=== PATIENT | female | born 1955 | race Caucasian/White ===

== ENCOUNTER → 2016-08-09 | Outpatient (CLI) | payer OTHER ==
[~2016-08-09] MED LIST: AMOX500C3 PO; ASCO500T16 PO; ASPI-232 PO; ATOR-14 PO; B-COTAB18 PO; BRIM0.1S OPR; CEPH500C2 PO; CHOL1TAB53 PO; CLC100X PO; CLON1TAB3 PO; FENT25DI10 TD; FENT75DI2 EXT; FLM4 PO; FOLI1TAB7 PO; INSDGI SC; LACT1POW PO; LATA0.5S OPB; LISI-729 PO; METH1TAB5 PO; MTHH1 PO; MULT-506 PO; NVLGI SC; NYSCR30 EXT; OXYC-57 PO; PARO1TAB27 PO; VITA400C15 PO; VITAMIN D3 PO; [UNRECOGNIZED DRUG - CODE] IM; [UNRECOGNIZED DRUG - CODE] PO
[2016-08-09 09:14] LABS: URINE APPEARANCE CLOUDY (CLEAR); URINE BILIRUBIN NEG (NEG); URINE COLOR YELLOW; URINE EPITHELIAL CELL AUTO >30 /lpf (0-5); URINE NITRITE POS (NEG); URINE SPECIFIC GRAVITY 1.015 (1.000-1.030); UROBILINOGEN NEG (NEG)
[2016-08-09 09:21] LABS: MANUAL MICROSCOPIC REQUIRED? NO; REVIEW REQ? YES
[2016-08-09 10:04] LABS: BASO % 0.4 %; BASO ABS # 0.03 K/uL (0-0.2); COMPLETE YES; EOS % 2.9 %; IG% 0.1 %; LYMPH % 30.4 %; MEAN CELL VOLUME 91.1 fL (80-100); MEAN CORPUSCULAR HEMOGLOBIN 29.6 pg (25-34); MEAN CORPUSCULAR HGB CONC 32.5 g/dl (32-36); MONO % 9.9 %; NEUT % 56.3 %; PLATELET COUNT 232 K/uL (130-400); RED BLOOD COUNT 3.95 M/uL (4.2-5.4)
[2016-08-09 10:17] LABS: BLOOD UREA NITROGEN 43 mg/dl (7-18); BUN/CREATININE RATIO 39.4 (10-20); CALCIUM 9.1 mg/dl (8.5-10.1); CARBON DIOXIDE 28 mmol/L (21-32); CHLORIDE 106 mmol/L (98-107); CHOLESTEROL 96 mg/dl (0-200); GLUCOSE 164 mg/dl (70-99); POTASSIUM 4.5 mmol/L (3.5-5.1); SODIUM 142 mmol/L (136-145); TRIGLYCERIDES 169 mg/dl (0-150); VERY LOW DENSITY LIPOPROT CALC 34 mg/dl
[2016-08-09 10:20] LABS: ESTIMATED AVERAGE GLUCOSE 169 mg/dl; HA1C FLAG Normal (Normal); HDL CHOLESTEROL 32 mg/dl; LDL CHOLESTEROL CALCULATED 30 mg/dl
== END ==
LOC: C.LABUPBEA 08:49
PROVIDERS: ATTEND Family Medicine
DX: R30.0 Dysuria (principal); E11.9 Type 2 diabetes mellitus without complications; I10 Essential (primary) hypertension; I73.89 Other specified peripheral vascular diseases

== ENCOUNTER → 2016-08-19 | Outpatient (CLI) | payer OTHER ==
[2016-08-19 08:51] LABS: ALT/SGPT 23 U/L (12-78); BLOOD UREA NITROGEN 20 mg/dl (7-18); BUN/CREATININE RATIO 25.3 (10-20); CALCIUM 8.8 mg/dl (8.5-10.1); CARBON DIOXIDE 26 mmol/L (21-32); CHLORIDE 109 mmol/L (98-107); CHOLESTEROL 80 mg/dl (0-200); CREATININE 0.77 mg/dl (0.60-1.20); GLUCOSE 120 mg/dl (70-99); POTASSIUM 4.1 mmol/L (3.5-5.1); SODIUM 143 mmol/L (136-145); TRIGLYCERIDES 75 mg/dl (0-150); VERY LOW DENSITY LIPOPROT CALC 15 mg/dl
[2016-08-19 08:54] LABS: ALB/GLOB RATIO 0.9 (0.9-2); ALKALINE PHOSPHATASE 92 U/L (45-117); AST/SGOT 15 U/L (15-37); CHOLESTEROL/HDL RATIO 2.2; HDL CHOLESTEROL 36 mg/dl; LDL CHOLESTEROL CALCULATED 29 mg/dl
[2016-08-19 09:51] LABS: HEMATOCRIT 35.4 % (37-47); MEAN CELL VOLUME 89.6 fL (80-100); MEAN CORPUSCULAR HEMOGLOBIN 29.9 pg (25-34); MEAN CORPUSCULAR HGB CONC 33.3 g/dl (32-36); MEAN PLATELET VOLUME 11.4 fL (7.4-10.4); PLATELET COUNT 208 K/uL (130-400); RED BLOOD COUNT 3.95 M/uL (4.2-5.4); WHITE BLOOD COUNT 6.53 K/uL (4.8-10.8)
[2016-08-19 09:54] LABS: BASO % 0.6 %; BASO ABS # 0.04 K/uL (0-0.2); COMPLETE YES; EOS % 2.3 %; IG% 0.3 %; LYMPH % 32.5 %; LYMPH ABS # 2.12 K/uL (1.2-3.4); MONO % 7.2 %; NEUT % 57.1 %; PLT ESTIMATE NORMAL
[2016-08-19 09:55] LABS: ESTIMATED AVERAGE GLUCOSE 171 mg/dl; HA1C FLAG Normal (Normal)
--- NOTE | 2016-09-28 12:10 | CODING QUERY MEDICAL NECESSITY ---
SUPPORTING DIAGNOSIS NEEDED A supporting diagnosis is required for the test/procedure performed on this patient in order for us to be reimbursed by the patient's insurance. Please provide a supporting diagnosis for the following test/procedure listed below next to the test name along with your signature. *If there is no additional diagnosis for this patient that would support the following test/procedure please document that below next to the test/procedure. Test(s)/Procedure(s) that require a supporting diagnosis: DOS 08/19 * Vitamin B12 DIAGNOSIS: Provider Signature: Date: Thank you Sirisha Nolan Health Information Management Once completed, please kindly fax back to [phone] For questions please call [phone]
== END ==
LOC: C.LABUPHEI 08:16
PROVIDERS: ATTEND Family Medicine
DX: E11.9 Type 2 diabetes mellitus without complications (principal)

== ENCOUNTER → 2016-09-14 | Outpatient (CLI) | payer OTHER ==
[~2016-09-14] MED LIST changes: -CEPH500C2 PO
[2016-09-14 09:31] LABS: URINE APPEARANCE CLEAR (CLEAR); URINE BILIRUBIN NEG (NEG); URINE COLOR YELLOW; URINE EPITHELIAL CELL AUTO >30 /lpf (0-5); URINE NITRITE POS (NEG); URINE SPECIFIC GRAVITY 1.019 (1.000-1.030); UROBILINOGEN NEG (NEG); ZZUR CULT IF INDIC CLEAN CATCH YES
[2016-09-14 09:37] LABS: MANUAL MICROSCOPIC REQUIRED? NO; REVIEW REQ? NO
== END ==
LOC: C.LABUPBEA 09:00
PROVIDERS: ATTEND Family Medicine
DX: N39.0 Urinary tract infection, site not specified (principal)

== ENCOUNTER → 2016-09-19 | Outpatient (CLI) | payer OTHER ==
[2016-09-19 12:10] LABS: URINE APPEARANCE CLEAR (CLEAR); URINE BILIRUBIN NEG (NEG); URINE COLOR YELLOW; URINE NITRITE NEG (NEG); URINE PH 5.5 (4.5-7.5); URINE SPECIFIC GRAVITY 1.015 (1.000-1.030); UROBILINOGEN NEG (NEG)
[2016-09-19 12:19] LABS: MANUAL MICROSCOPIC REQUIRED? NO; REVIEW REQ? NO
== END ==
LOC: C.LABUPBEA 09:03
PROVIDERS: ATTEND Family Medicine
DX: N39.0 Urinary tract infection, site not specified (principal)

== ENCOUNTER → 2016-11-22 | Outpatient (CLI) | payer OTHER ==
[~2016-11-22] MED LIST changes: +METH-1305 PO; -METH1TAB5 PO
[2016-11-22 10:29] LABS: URINE APPEARANCE TURBID (CLEAR); URINE BILIRUBIN NEG (NEG); URINE COLOR YELLOW; URINE EPITHELIAL CELL AUTO >30 /lpf (0-5); URINE NITRITE NEG (NEG); URINE PH 6.5 (4.5-7.5); URINE SPECIFIC GRAVITY 1.023 (1.000-1.030); UROBILINOGEN NEG (NEG)
[2016-11-22 10:32] LABS: MANUAL MICROSCOPIC REQUIRED? NO; REVIEW REQ? YES
== END ==
LOC: C.LABUPBEA 10:00
PROVIDERS: ATTEND Family Medicine
DX: R82.5 Elevated urine levels of drugs, medicaments and biological substances (principal)

== ENCOUNTER → 2017-01-19 | Outpatient (CLI) | payer OTHER ==
[~2017-01-19] MED LIST changes: -CHOL1TAB53 PO; -FENT25DI10 TD; -MTHH1 PO; -[UNRECOGNIZED DRUG - CODE] PO
[2017-01-19 10:55] LABS: ALT/SGPT 28 U/L (12-78); AST/SGOT 18 U/L (15-37); BLOOD UREA NITROGEN 23 mg/dl (7-18); BUN/CREATININE RATIO 33.4 (10-20); CARBON DIOXIDE 29 mmol/L (21-32); CHLORIDE 110 mmol/L (98-107); CREATININE 0.69 mg/dl (0.60-1.20); GLUCOSE 62 mg/dl (70-99); SODIUM 146 mmol/L (136-145)
[2017-01-19 10:57] LABS: ALB/GLOB RATIO 0.9 (0.9-2); ALKALINE PHOSPHATASE 96 U/L (45-117); CHOLESTEROL 127 mg/dl (0-200); HDL CHOLESTEROL 32 mg/dl; LDL CHOLESTEROL CALCULATED 63 mg/dl; TRIGLYCERIDES 162 mg/dl (0-150); VERY LOW DENSITY LIPOPROT CALC 32 mg/dl
[2017-01-19 11:32] LABS: ESTIMATED AVERAGE GLUCOSE 171 mg/dl; HA1C FLAG Normal (Normal)
== END | disposition home or self-care (01) ==
LOC: C.LABUPBEA 09:19
PROVIDERS: ATTEND Family Medicine
DX: E11.9 Type 2 diabetes mellitus without complications (principal); I25.2 Old myocardial infarction

== ENCOUNTER → 2017-01-25 | Day surgery (SDC) | payer OTHER ==
[2017-01-05 07:42] VITALS: Ht 151.4 cm; Wt 95.9 kg
[~2017-01-25] VITALS: Ht 151.4 cm; Wt 95.9 kg
[~2017-01-25] MED LIST changes: +SODIUM CHLORIDE 0.9% 500ML 500 ML IV ONE
[2017-01-25 12:55] VITALS: TEMP 37.1
--- NOTE | 2017-01-25 13:25 | Endo History and Physical ---
History & Physical Date of Service: Jan 25, 2017. Chief Complaint: constipation Referring Physician: Dr. Pimentel History of Present Illness 61 yo CF who presents for colonoscopy secondary to change in bowel habits with constipation. Past Surgical History Hx Cardiac Surgery: Yes (HEART CATH-POST STENT PLACEMENT?DATE) Hx Abdominal Surgery: No Hx Cancer Surgery: No Hx Thoracic Surgery: No Hx Orthopedic: Yes (LEFT TOE AMPUTATION, RT BKA, LEFT BKA, LEFT AKA-REVISION) Hx Urinary Tract Surgery: No Social History Smoking Status: Former Smoker Hx Substance Use: Yes (SEE MED REC) Hx Alcohol Use: No Allergies Coded Allergies: Carbamazepine (Verified Allergy, Unknown, unknown, 01/05/17) Citalopram (Verified Allergy, Unknown, unknown, 01/05/17) Codeine (Verified Allergy, Unknown, unknown, 01/05/17) Cyclobenzaprine (Verified Allergy, Unknown, unknown, 01/05/17) Escitalopram (Verified Allergy, Unknown, unknown, 01/05/17) Fluoxetine (Verified Allergy, Unknown, unknown, 01/05/17) Linezolid (Verified Allergy, Unknown, unknown, 01/05/17) Morphine (Verified Allergy, Unknown, unknown, 01/05/17) Oxycodone (Verified Allergy, Unknown, unknown, 01/05/17) Propoxyphene (Verified Allergy, Unknown, unknown, 01/05/17) Shellfish (Verified Allergy, Unknown, unknown, 01/05/17) Shellfish Allergy (Verified Allergy, Unknown, Unknown, 01/05/17) RD entered this drug allergy 07/03/12 as duplicate of shellfish food allergy. Tramadol (Verified Allergy, Unknown, unknown, 01/05/17) Current Medications Reported Home Medications Medications Dose Route/Sig Max Daily Dose Days Date Category Dose Instructions [Vitamin D3] 1 Tab PO DAILY 01/05/17 Reported Tamsulosin HCl 0.4 Mg Cap 1 Cap PO HS 01/05/17 Reported Nystatin Cream (Nystatin) 90 Appln/30 Gm Cr 0 EXT DIRECTE 01/05/17 Reported APPLY TO AFFECTED AREA BID Methenamine Hippurate 1 Gm Tab 1 Tab PO QPM 01/05/17 Reported Fentanyl 75 Mcg/Hr Dis 1 Dose EXT DIRECTED 01/05/17 Reported Percocet 5MG/325MG (Oxycodone/Acetaminophen) Tab 1 Tablet PO Q6H PRN 09/21/16 Reported PAIN Alphagan P Oph (Brimonidine Tartrate) 0.1 % Ninfa 1 Drops OPR BID 90 07/06/16 Reported Risperdal Consta (Risperidone) 37.5 Mg Inj 37.5 Units IM [id number] 07/06/16 Reported Multivitamin (Multivitamins) Tab 1 Tab PO DAILY 07/06/16 Reported Zestril (Lisinopril) 5 Mg Tab 5 Mg PO DAILY 07/06/16 Reported Klonopin (Clonazepam) 1 Mg Tab 1 Mg PO BID 04/26/16 Reported Novolog (Insulin Aspart) Inj 6 Units SC BID PRN 10/30/14 Reported BSGS ACHS GIVE EXTRA 6 UNITS IF BSG >400 Vitamin E (vp-Esxrr-Nnclpxhtkv Acetate) 400 Inter.unit Cap 400 Inter.unit PO BID 10/30/14 Reported Colace (Docusate Sodium) 100 Mg Cap 100 Mg PO BID 10/30/14 Reported Vitamin B Complex (B-Complex Vitamins) 1 Tab Tab 1 Tab PO DAILY 10/30/14 Reported Novolog (Insulin Aspart) Inj 30 Units SC DINNER 10/30/14 Reported Novolog (Insulin Aspart) Inj 30 Units SC LUNCH 10/30/14 Reported Novolog (Insulin Aspart) Inj 30 Units SC BREAKFAST 10/30/14 Reported Xalatan 0.005% Oph Ninfa (Latanoprost) 0.005 % Ninfa 1 Drop OPB HS 10/30/14 Reported Lipitor (Atorvastatin) 10 Mg Tab 10 Mg PO HS 01/16/13 Reported Aspir-81 (Aspirin) 81 Mg Tab 81 Mg PO DAILY 11/09/12 Reported Lantus (Insulin Glargine) Vial 45 Units SC BID 06/06/12 Reported Folvite (Folic Acid) 1 Mg Tab 1 Mg PO DAILY 06/06/12 Reported Ascorbic Acid 500 Mg Tab 1,000 Mg PO DAILY 06/06/12 Reported Vital Signs Weight (Kilograms): 95.91 Height (Feet): 0 Height (Inches): 59.6 Date Time Temp Pulse Resp B/P (MAP) Pulse Ox O2 Delivery O2 Flow Rate FiO2 01/25/17 12:55 37.1 84 20 149/55 (86) 97 Room Air Physical Exam General Appearance: WD/WN, no apparent distress Respiratory/Chest: Auscultation: breath sounds normal Cardiovascular: Heart Auscultation: RRR Abdomen: Bowel Sounds: normal Inspection & Palpation: soft, non-distended, no tenderness, guarding & rebound Assessment and Plan Assessment: 61 yo CF who presents for colonoscopy secondary to change in bowel habits with constipation. Plan: Proceed with colonoscopy.
--- NOTE | 2017-01-25 14:27 | Discharge Instructions ---
Endoscopy Patient Instructions Date / Procedure(s) Performed Jan 25, 2017. Colonoscopy Allergy Information Coded Allergies: Carbamazepine (Verified Allergy, Unknown, unknown, 01/05/17) Citalopram (Verified Allergy, Unknown, unknown, 01/05/17) Codeine (Verified Allergy, Unknown, unknown, 01/05/17) Cyclobenzaprine (Verified Allergy, Unknown, unknown, 01/05/17) Escitalopram (Verified Allergy, Unknown, unknown, 01/05/17) Fluoxetine (Verified Allergy, Unknown, unknown, 01/05/17) Linezolid (Verified Allergy, Unknown, unknown, 01/05/17) Morphine (Verified Allergy, Unknown, unknown, 01/05/17) Oxycodone (Verified Allergy, Unknown, unknown, 01/05/17) Propoxyphene (Verified Allergy, Unknown, unknown, 01/05/17) Shellfish (Verified Allergy, Unknown, unknown, 01/05/17) Shellfish Allergy (Verified Allergy, Unknown, Unknown, 01/05/17) RD entered this drug allergy 07/03/12 as duplicate of shellfish food allergy. Tramadol (Verified Allergy, Unknown, unknown, 01/05/17) Discharge Date / Findings Jan 25, 2017. Ascending polypoid mass s/p mass Rectal polyps Internal hemorrhoids Medication Instructions OK to resume all medications today as prescribed Reported Home Medications Medications Dose Route/Sig Max Daily Dose Days Date Category Dose Instructions [Vitamin D3] 1 Tab PO DAILY 01/05/17 Reported Tamsulosin HCl 0.4 Mg Cap 1 Cap PO HS 01/05/17 Reported Nystatin Cream (Nystatin) 90 Appln/30 Gm Cr 0 EXT DIRECTE 01/05/17 Reported APPLY TO AFFECTED AREA BID Methenamine Hippurate 1 Gm Tab 1 Tab PO QPM 01/05/17 Reported Fentanyl 75 Mcg/Hr Dis 1 Dose EXT DIRECTED 01/05/17 Reported Percocet 5MG/325MG (Oxycodone/Acetaminophen) Tab 1 Tablet PO Q6H PRN 09/21/16 Reported PAIN Alphagan P Oph (Brimonidine Tartrate) 0.1 % Ninfa 1 Drops OPR BID 90 07/06/16 Reported Risperdal Consta (Risperidone) 37.5 Mg Inj 37.5 Units IM [id number] 07/06/16 Reported Multivitamin (Multivitamins) Tab 1 Tab PO DAILY 07/06/16 Reported Zestril (Lisinopril) 5 Mg Tab 5 Mg PO DAILY 07/06/16 Reported Klonopin (Clonazepam) 1 Mg Tab 1 Mg PO BID 04/26/16 Reported Novolog (Insulin Aspart) Inj 6 Units SC BID PRN 10/30/14 Reported BSGS ACHS GIVE EXTRA 6 UNITS IF BSG >400 Vitamin E (ip-Zsjws-Susuaoklyv Acetate) 400 Inter.unit Cap 400 Inter.unit PO BID 10/30/14 Reported Colace (Docusate Sodium) 100 Mg Cap 100 Mg PO BID 10/30/14 Reported Vitamin B Complex (B-Complex Vitamins) 1 Tab Tab 1 Tab PO DAILY 10/30/14 Reported Novolog (Insulin Aspart) Inj 30 Units SC DINNER 10/30/14 Reported Novolog (Insulin Aspart) Inj 30 Units SC LUNCH 10/30/14 Reported Novolog (Insulin Aspart) Inj 30 Units SC BREAKFAST 10/30/14 Reported Xalatan 0.005% Oph Ninfa (Latanoprost) 0.005 % Ninfa 1 Drop OPB HS 10/30/14 Reported Lipitor (Atorvastatin) 10 Mg Tab 10 Mg PO HS 01/16/13 Reported Aspir-81 (Aspirin) 81 Mg Tab 81 Mg PO DAILY 11/09/12 Reported Lantus (Insulin Glargine) Vial 45 Units SC BID 06/06/12 Reported Folvite (Folic Acid) 1 Mg Tab 1 Mg PO DAILY 06/06/12 Reported Ascorbic Acid 500 Mg Tab 1,000 Mg PO DAILY 06/06/12 Reported Provider Instructions Activity Restrictions - No exercising or heavy lifting for 24 hours. - Do not drink alcohol the day of the procedure. - Do not drive a car or operate machinery until the day after the procedure. - Do not make any important decisions or sign important papers in 24 hours after the procedure. Following Day: - Return to full activity which may include returning to work/school. Diet Start your diet with liquids and light foods (jello, soup, juice, toast). Then eat your usual diet if not nauseated. Treatment For Common After Affects For mild abdominal pain, bloating, or excessive gas: - Rest - Eat lightly - Lie on right side Follow-Up Information Follow-up with Dr. Pimentel as scheduled Anesthesia Information What You Should Know You have had a procedure that required some medicine to reduce anxiety and discomfort. This treatment is called moderate sedation. After receiving the treatment, you may be sleepy, but you will be able to breathe on your own. The effects of the treatment may last for several hours. Follow these instructions along with Activity/Diet recommendations noted above: * Do NOT do anything where dizziness or clumsiness would be dangerous. * Rest quietly at home today, then you can be up and about tomorrow. * Have a responsible person stay with you the rest of today. * You may have had an I.V. today. If so, you may take the dressing off later today. Recommendations Call your doctor if: * Trouble breathing * Continuous vomiting for more than 24 hours * Temperature above 101 degrees * Severe abdominal pain or bloating * Pain not relieved by pain medicine ordered * There is increased drainage or redness from any incision * A large amount of rectal bleeding greater than 2-3 tablespoons. (If you had a polyp/s removed or have hemorrhoids, a small amount of blood - from the rectum is to be expected.) * You have any unanswered questions or concerns. IN THE EVENT OF A SERIOUS EMERGENCY, GO TO THE NEAREST EMERGENCY ROOM Your discharge instructions were prepared by provider Sesar Tucker. Patient Instructions Signature Page Antionette Savage Patient (or Guardian) Signature/Date: I have read and understand the instructions given to me by my caregivers. Caregiver/RN/Doctor Signature/Date: The above-named patient and/or guardian has received patient instructions on this date. + Original Patient Signature Page (only) stays with chart. Please make copy for patient.
--- NOTE | 2017-01-25 14:30 | Anesthesiology Progress Note ---
Anesthesia Post Op Note Date & Time Jan 25, 2017 at 14:30 Vital Signs Pain Intensity: 0 Vital Signs Past 12 Hours Date Time Temp Pulse Resp B/P (MAP) Pulse Ox O2 Delivery O2 Flow Rate FiO2 01/25/17 14:20 82 20 155/71 (99) 99 Room Air 01/25/17 14:05 84 20 119/78 (92) 100 Room Air 01/25/17 12:55 37.1 84 20 149/55 (86) 97 Room Air Notes Mental Status: alert / awake / arousable, participated in evaluation Pt Amnestic to Procedure: Yes Nausea / Vomiting: adequately controlled Pain: adequately controlled Airway Patency, RR, SpO2: stable & adequate BP & HR: stable & adequate Hydration State: stable & adequate Anesthetic Complications: no major complications apparent
[2017-01-25 14:35] VITALS: BP 116/68; PULSE 82; O2SAT 100
--- NOTE | 2017-01-25 14:38 | GI REPORT ---
Procedure Date: 01/25/2017 1:37 PM Procedure: Colonoscopy Indications: Change in bowel habits, Constipation Medicines: Monitored Anesthesia Care Complications: No immediate complications. Estimated Blood Loss: Estimated blood loss: none. Procedure: Pre-Anesthesia Assessment: - Prior to the procedure, a History and Physical was performed, and patient medications and allergies were reviewed. The patient's tolerance of previous anesthesia was also reviewed. The risks and benefits of the procedure and the sedation options and risks were discussed with the patient. All questions were answered, and informed consent was obtained. Prior Anticoagulants: The patient has taken aspirin, last dose was 1 day prior to procedure. ASA Grade Assessment: III - A patient with severe systemic disease. After reviewing the risks and benefits, the patient was deemed in satisfactory condition to undergo the procedure. After I obtained informed consent, the scope was passed under direct vision. Throughout the procedure, the patient's blood pressure, pulse, and oxygen saturations were monitored continuously. The Scope was introduced through the anus and advanced to the terminal ileum. The colonoscopy was performed without difficulty. The patient tolerated the procedure well. The quality of the bowel preparation was good. The terminal ileum, ileocecal valve, appendiceal orifice, and rectum were photographed. Findings: A 25 mm polypoid lesion was found in the ascending colon. The lesion was sessile. No bleeding was present. This was biopsied with a cold forceps for histology. Two sessile polyps were found in the rectum. The polyps were 4 to 6 mm in size. These polyps were removed with a hot snare. Resection and retrieval were complete. Non-bleeding internal hemorrhoids were found during retroflexion. The hemorrhoids were small. Impression: - Polypoid lesion in the ascending colon. Biopsied. - Two 4 to 6 mm polyps in the rectum, removed with a hot snare. Resected and retrieved. - Non-bleeding internal hemorrhoids. Recommendation: - Resume previous diet. - Continue present medications. - Repeat colonoscopy for surveillance based on pathology results. - Refer to a surgeon at appointment to be scheduled. - Return to primary care physician as previously scheduled. Sesar Tucker DO 01/25/2017 2:37:22 PM This report has been signed electronically. Note Initiated On: 01/25/2017 1:37 PM I attest to the content of the Intraoperative Record and orders documented therein, exceptions below
== END | disposition home or self-care (01) ==
LOC: C.GI 12:13
PROVIDERS: ATTEND Internal Medicine
DX: D12.2 Benign neoplasm of ascending colon (principal); K62.1 Rectal polyp; K64.8 Other hemorrhoids; Z87.891 Personal history of nicotine dependence; Z95.5 Presence of coronary angioplasty implant and graft; Z89.511 Acquired absence of right leg below knee; Z89.612 Acquired absence of left leg above knee; Z79.82 Long term (current) use of aspirin; Z79.4 Long term (current) use of insulin; Z79.899 Other long term (current) drug therapy; K59.00 Constipation, unspecified; R19.4 Change in bowel habit

== ENCOUNTER → 2017-02-16 | Outpatient (CLI) | payer OTHER ==
[~2017-02-16] MED LIST changes: -METH-1305 PO; +METH1TAB5 PO; -SODIUM CHLORIDE 0.9% 500ML 500 ML IV ONE
[2017-02-16 09:35] LABS: BASO % 0.4 %; BASO ABS # 0.03 K/uL (0-0.2); COMPLETE YES; EOS % 2.6 %; HEMATOCRIT 42.5 % (37-47); IG% 0.1 %; LYMPH % 23.2 %; LYMPH ABS # 1.58 K/uL (1.2-3.4); MEAN CELL VOLUME 93.4 fL (80-100); MEAN CORPUSCULAR HEMOGLOBIN 29.7 pg (25-34); MEAN CORPUSCULAR HGB CONC 31.8 g/dl (32-36); MEAN PLATELET VOLUME 11.2 fL (7.4-10.4); MONO % 7.3 %; NEUT % 66.4 %; PLATELET COUNT 206 K/uL (130-400); RED BLOOD COUNT 4.55 M/uL (4.2-5.4); WHITE BLOOD COUNT 6.82 K/uL (4.8-10.8)
[2017-02-16 09:58] LABS: ALT/SGPT 19 U/L (12-78); BLOOD UREA NITROGEN 28 mg/dl (7-18); BUN/CREATININE RATIO 33.4 (10-20); CALCIUM 9.6 mg/dl (8.5-10.1); CARBON DIOXIDE 26 mmol/L (21-32); CHLORIDE 110 mmol/L (98-107); CHOLESTEROL 124 mg/dl (0-200); CREATININE 0.85 mg/dl (0.60-1.20); GLUCOSE 231 mg/dl (70-99); POTASSIUM 4.2 mmol/L (3.5-5.1); SODIUM 143 mmol/L (136-145); TRIGLYCERIDES 161 mg/dl (0-150); VERY LOW DENSITY LIPOPROT CALC 32 mg/dl
[2017-02-16 10:01] LABS: ALB/GLOB RATIO 0.8 (0.9-2); ALKALINE PHOSPHATASE 84 U/L (45-117); AST/SGOT 11 U/L (15-37); CHOLESTEROL/HDL RATIO 3.6; HDL CHOLESTEROL 34 mg/dl; LDL CHOLESTEROL CALCULATED 58 mg/dl
[2017-02-16 10:22] LABS: ESTIMATED AVERAGE GLUCOSE 174 mg/dl; HA1C FLAG Normal (Normal)
--- NOTE | 2017-04-19 06:48 | CODING QUERY MEDICAL NECESSITY ---
SUPPORTING DIAGNOSIS NEEDED A supporting diagnosis is required for the test/procedure performed on this patient in order for us to be reimbursed by the patient's insurance. Please provide a supporting diagnosis for the following test/procedure listed below next to the test name along with your signature. *If there is no additional diagnosis for this patient that would support the following test/procedure please document that below next to the test/procedure. Test(s)/Procedure(s) that require a supporting diagnosis: * ([id number]) B12 VITAMIN LEVEL DIAGNOSIS: DATE OF SERVICE: 02/16/17 Provider Signature: Date: Thank you Dilshad Snow [facility] Information Management Once completed, please kindly fax back to [phone] For questions please call [phone]
== END ==
LOC: C.LABUPBEA 09:21
PROVIDERS: ATTEND Nurse Practitioner Family
DX: E11.42 Type 2 diabetes mellitus with diabetic polyneuropathy (principal); G89.29 Other chronic pain; G93.41 Metabolic encephalopathy; I25.10 Atherosclerotic heart disease of native coronary artery without angina pectoris; E55.9 Vitamin D deficiency, unspecified; D64.9 Anemia, unspecified

== ENCOUNTER → 2017-05-08 | Outpatient (CLI) | payer OTHER ==
[~2017-05-08] MED LIST changes: -AMOX500C3 PO
[2017-05-08 08:46] LABS: MANUAL MICROSCOPIC REQUIRED? NO; REVIEW REQ? NO; URINE APPEARANCE CLOUDY (CLEAR); URINE BILIRUBIN NEG (NEG); URINE COLOR YELLOW; URINE NITRITE NEG (NEG); URINE PH 5.5 (4.5-7.5); URINE SPECIFIC GRAVITY 1.018 (1.000-1.030); UROBILINOGEN NEG (NEG)
== END ==
LOC: C.LABUPBEA 08:13
PROVIDERS: ATTEND Nurse Practitioner Family
DX: R82.5 Elevated urine levels of drugs, medicaments and biological substances (principal)

== ENCOUNTER → 2017-06-08 | Outpatient (CLI) | payer OTHER ==
[~2017-06-08] MED LIST changes: +METH-1305 PO; -METH1TAB5 PO
== END ==
LOC: C.LABUPBEA 09:08
PROVIDERS: ATTEND Nurse Practitioner Family
DX: E55.9 Vitamin D deficiency, unspecified (principal)

== ENCOUNTER → 2017-06-12 | Outpatient (CLI) | payer OTHER | END | disposition home or self-care (01) | LOC: C.LABUPBEA 09:23 | PROVIDERS: ATTEND Nurse Practitioner Family | DX: E55.9 Vitamin D deficiency, unspecified (principal) ==

== ENCOUNTER → 2017-06-13 | Outpatient (CLI) | payer OTHER ==
--- NOTE | 2017-06-14 07:43 | MAMMOGRAPHY REPORT ---
BILATERAL DIGITAL SCREENING MAMMOGRAM WITH CAD: 06/13/2017 CLINICAL HISTORY: Routine screening. Patient has no complaints. TECHNIQUE: Bilateral CC and MLO views were attempted. Current study was also evaluated with a Comput er Aided Detection (CAD) system. COMPARISON: Comparison is made to exam dated: 04/28/2016 mammogram - [facility]. BREAST COMPOSITION: The tissue of both breasts is almost entirely fatty. FINDINGS: The exam is markedly suboptimal due to inability of the patient to position for the exam de spite assistance from an additional medical technologist clinical to help with positioning. A large amoun t of posterior tissue is missing and the MLO views do not include enough tissue to be considered diag nostic. Within this limitation, no suspicious mass, architectural distortion or cluster of microcalc ifications is seen in the visualized portion of the breasts. There are a few scattered benign-appear ing microcalcifications. IMPRESSION: ACR BI-RADS CATEGORY 1: NEGATIVE There is no mammographic evidence of malignancy in the visualized anterior portions of the breasts, w ithin the limitations of the exam. The patient could not position herself for the views and the exam remains suboptimal despite assistance from a second medical technologist clinical during imaging. A 1 ye ar screening mammogram is recommended. The patient will receive written notification of the results. Approximately 10% of breast cancers are not detected with mammography. A negative mammographic report should not delay biopsy if a clinically suggestive mass is present. Kerri Alexandra M.D. ay/:06/13/2017 15:21:38 Production Operations Engineer: Meggan FROST)([place]), [facility] letter sent: Normal 1/2 BI-RADS Code: ACR BI-RADS Category 1: Negative
== END | disposition home or self-care (01) ==
LOC: C.MAMM 13:49
PROVIDERS: ATTEND Family Medicine
DX: Z12.31 Encounter for screening mammogram for malignant neoplasm of breast (principal)

== ENCOUNTER → 2017-08-01 | Outpatient (CLI) | payer OTHER ==
[~2017-08-01] MED LIST changes: +ACET-1311 PO; +ALEN70TA4 PO; +APIX1TAB3 PO; +ASCO100061 PO; +ATOR-26 PO; +CALC500C3 PO; +CALC600T9 PO; +CHOL20005 PO; +CLON0.5T20 PO; +CLON1TAB10 PO; -CLON1TAB3 PO; +DOCU-94 PO; +DRGTP12 TOP; +DRGTP25 TOP; +DULCOLAX SUPP RE; +ERYTTAB PO; -FOLI1TAB7 PO; +FOLI1TAB8 PO; +FURO-85 PO; +GLGKIT IM; +GUAI1LIQ16 PO; +INSU100I; +KLN/5 PO; +LPR25 PO; +LVMI SC; +LVMI SQ; +MAGN1POW16; +MAGN400C2 PO; +MOML PO; +NEOM500T PO; +NVLG SQ; +NYSTOIN5 TOP; +OXGN; +PARO10TA3 PO; +POTA10TA PO; +PRLSR20 PO; +SENN-65 PO; +SODIENE PR; +SULF800T23 PO; +VITA1TAB4 PO; +VOLTAREN GEL TOP; +[UNRECOGNIZED DRUG - CODE] PO
[2017-08-01 08:24] LABS: HEMOGLOBIN A1C 9.1 % (4.5-5.6)
== END ==
LOC: C.LABUPBEA 07:30
PROVIDERS: ATTEND Nurse Practitioner Family
DX: E11.42 Type 2 diabetes mellitus with diabetic polyneuropathy (principal)

== ENCOUNTER → 2017-09-28 | Outpatient (CLI) | payer OTHER ==
[~2017-09-28] MED LIST changes: -ACET-1311 PO; -ALEN70TA4 PO; -APIX1TAB3 PO; -ASCO100061 PO; -ATOR-26 PO; -CALC500C3 PO; -CALC600T9 PO; -CHOL20005 PO; -CLON0.5T20 PO; -CLON1TAB10 PO; +CLON1TAB3 PO; -DOCU-94 PO; -DRGTP12 TOP; -DRGTP25 TOP; -DULCOLAX SUPP RE; -ERYTTAB PO; -FURO-85 PO; -GLGKIT IM; -GUAI1LIQ16 PO; -INSU100I; -KLN/5 PO; -LPR25 PO; -LVMI SC; -LVMI SQ; -MAGN1POW16; -MAGN400C2 PO; -MOML PO; -NEOM500T PO; -NVLG SQ; -NYSTOIN5 TOP; -OXGN; -PARO10TA3 PO; -POTA10TA PO; -PRLSR20 PO; -SENN-65 PO; -SODIENE PR; -SULF800T23 PO; -VITA1TAB4 PO; -VOLTAREN GEL TOP; -[UNRECOGNIZED DRUG - CODE] PO
[2017-09-28 10:22] LABS: HEMATOCRIT 38.6 % (37-47); HEMOGLOBIN 12.6 g/dL (12.0-16.0); MEAN CORPUSCULAR HEMOGLOBIN 30.4 pg (25-34); MEAN CORPUSCULAR HGB CONC 32.6 g/dl (32-36); MEAN PLATELET VOLUME 11.3 fL (7.4-10.4); PLATELET COUNT 195 K/uL (130-400); RED CELL DISTRIBUTION WIDTH CV 13.7 % (11.5-14.5); RED CELL DISTRIBUTION WIDTH SD 46.7 fL (36.4-46.3); WHITE BLOOD COUNT 6.89 K/uL (4.8-10.8)
[2017-09-28 10:33] LABS: ALBUMIN 2.9 gm/dl (3.4-5.0); ALT/SGPT 24 U/L (12-78); AST/SGOT 20 U/L (15-37); BLOOD UREA NITROGEN 28 mg/dl (7-18); CARBON DIOXIDE 25 mmol/L (21-32); CREATININE 0.93 mg/dl (0.60-1.20); GLUCOSE 174 mg/dl (70-99); SODIUM 138 mmol/L (136-145)
[2017-09-28 10:45] LABS: ALKALINE PHOSPHATASE 85 U/L (45-117); CHOLESTEROL 95 mg/dl (0-200); LDL CHOLESTEROL CALCULATED 37 mg/dl; TOTAL PROTEIN 6.1 gm/dl (6.4-8.2)
== END ==
LOC: C.LABUPBEA 09:52
PROVIDERS: ATTEND Nurse Practitioner Family
DX: E11.42 Type 2 diabetes mellitus with diabetic polyneuropathy (principal); G89.29 Other chronic pain; I25.10 Atherosclerotic heart disease of native coronary artery without angina pectoris

== ENCOUNTER → 2017-10-06 | Outpatient (CLI) | payer OTHER ==
[2017-10-06 12:22] LABS: INFLUENZA B ANTIGEN Neg for Influ B (NEG)
== END ==
LOC: C.LABUPBEA 11:37
PROVIDERS: ATTEND Nurse Practitioner Family
DX: J11.1 Influenza due to unidentified influenza virus with other respiratory manifestations (principal)

== ENCOUNTER → 2017-10-30 | Outpatient (CLI) | payer OTHER ==
[2017-10-30 13:23] LABS: HEMOGLOBIN A1C 8.6 % (4.5-5.6)
[2017-10-30 15:00] LABS: BLOOD UREA NITROGEN 25 mg/dl (7-18); CALCIUM 8.8 mg/dl (8.5-10.1); CARBON DIOXIDE 25 mmol/L (21-32); CREATININE 0.95 mg/dl (0.60-1.20); GLUCOSE 189 mg/dl (70-99); POTASSIUM 4.3 mmol/L (3.5-5.1); SODIUM 142 mmol/L (136-145)
== END ==
LOC: C.LABUPBEA 08:42
PROVIDERS: ATTEND Nurse Practitioner Family
DX: E11.9 Type 2 diabetes mellitus without complications (principal); E11.42 Type 2 diabetes mellitus with diabetic polyneuropathy

== ENCOUNTER → 2018-02-16 | Outpatient (CLI) | payer OTHER ==
[~2018-02-16] MED LIST changes: +ACET-1311 PO; +ALEN70TA4 PO; +ASCO100061 PO; -ASCO500T16 PO; -ATOR-14 PO; +ATOR-26 PO; +CALC500C3 PO; +CALC600T9 PO; +CHOL20005 PO; -CLC100X PO; -CLON1TAB3 PO; +DOCU-94 PO; +DULCOLAX SUPP RE; -FENT75DI2 EXT; +GLGKIT IM; +GUAI1LIQ16 PO; -INSDGI SC; +KLN/5 PO; -LACT1POW PO; +LVMI SC; +LVMI SQ; +MOML PO; +NVLG SQ; -NVLGI SC; -NYSCR30 EXT; +NYSTOIN5 TOP; -OXYC-57 PO; +PARO10TA3 PO; -PARO1TAB27 PO; +PRLSR20 PO; +SENN-65 PO; +SODIENE PR; +VITA1TAB4 PO; -VITA400C15 PO; -VITAMIN D3 PO; +VOLTAREN GEL TOP
[2018-02-16 08:09] LABS: BASO % 0.3 %; BASO ABS # 0.02 K/uL (0-0.2); EOS % 2.6 %; EOS ABS # 0.16 K/uL (0-0.5); HEMATOCRIT 39.4 % (37-47); HEMOGLOBIN 12.9 g/dL (12.0-16.0); IG# 0.01 K/uL (0.00-0.02); LYMPH % 31.6 %; LYMPH ABS # 1.95 K/uL (1.2-3.4); MEAN CELL VOLUME 92.5 fL (80-100); MEAN CORPUSCULAR HEMOGLOBIN 30.3 pg (25-34); MEAN CORPUSCULAR HGB CONC 32.7 g/dl (32-36); MEAN PLATELET VOLUME 11.1 fL (7.4-10.4); MONO % 7.4 %; MONO ABS # 0.46 K/uL (0.11-0.59); NEUT % 57.9 %; NEUT ABS # 3.58 K/uL (1.4-6.5); PLATELET COUNT 202 K/uL (130-400); RED CELL DISTRIBUTION WIDTH CV 13.4 % (11.5-14.5); RED CELL DISTRIBUTION WIDTH SD 45.3 fL (36.4-46.3); WHITE BLOOD COUNT 6.18 K/uL (4.8-10.8)
[2018-02-16 08:23] LABS: ALBUMIN 2.8 gm/dl (3.4-5.0); ALKALINE PHOSPHATASE 76 U/L (45-117); ALT/SGPT 19 U/L (12-78); AST/SGOT 11 U/L (15-37); BLOOD UREA NITROGEN 24 mg/dl (7-18); CALCIUM 8.7 mg/dl (8.5-10.1); CARBON DIOXIDE 26 mmol/L (21-32); CHOLESTEROL 99 mg/dl (0-200); GLUCOSE 179 mg/dl (70-99); LDL CHOLESTEROL CALCULATED 41 mg/dl; POTASSIUM 4.2 mmol/L (3.5-5.1); SODIUM 142 mmol/L (136-145); TOTAL PROTEIN 6.1 gm/dl (6.4-8.2)
== END | disposition home or self-care (01) ==
LOC: C.LABUPBEA 07:47
PROVIDERS: ATTEND Nurse Practitioner Family
DX: E56.8 Deficiency of other vitamins (principal); I25.811 Atherosclerosis of native coronary artery of transplanted heart without angina pectoris; E55.9 Vitamin D deficiency, unspecified; I25.10 Atherosclerotic heart disease of native coronary artery without angina pectoris; E11.42 Type 2 diabetes mellitus with diabetic polyneuropathy

== ENCOUNTER → 2018-02-19 | Outpatient (CLI) | payer OTHER ==
[~2018-02-19] MED LIST changes: +ERYTTAB PO; +INSU100I; +MAGN1POW16; +NEOM500T PO; +SULF800T23 PO
--- NOTE | 2018-02-19 15:29 | DIAGNOSTIC IMAGING REPORT ---
CHEST 2 VIEWS ROUTINE HISTORY: 62 years-old Female PAT preoperative exam. No acute chest complaints. COMPARISON: Chest radiograph 10/30/2014 TECHNIQUE: AP and lateral views of the chest FINDINGS: The cardiac silhouette is mildly enlarged. Moderate hemidiaphragmatic elevation. Subsegmental bibasilar opacities. No pneumothorax, pleural effusion or overt pulmonary edema. Degenerative changes of the shoulders and spine. IMPRESSION: 1. Cardiomegaly without acute process. 2. Mild right hemidiaphragm elevation with subsegmental atelectasis. The above report was generated using voice recognition software. It may contain grammatical, syntax or spelling errors. Electronically signed by: Watler Aden M.D. 02/19/2018 3:27 PM Dictated Date/Time: 02/19/2018 3:26 PM
[2018-02-19 15:45] LABS: BASO % 0.3 %; BASO ABS # 0.02 K/uL (0-0.2); EOS ABS # 0.15 K/uL (0-0.5); HEMATOCRIT 42.3 % (37-47); HEMOGLOBIN 14.1 g/dL (12.0-16.0); IG# 0.01 K/uL (0.00-0.02); LYMPH % 24.3 %; LYMPH ABS # 1.81 K/uL (1.2-3.4); MEAN CELL VOLUME 91.8 fL (80-100); MEAN CORPUSCULAR HEMOGLOBIN 30.6 pg (25-34); MEAN CORPUSCULAR HGB CONC 33.3 g/dl (32-36); MEAN PLATELET VOLUME 11.1 fL (7.4-10.4); MONO % 7.4 %; MONO ABS # 0.55 K/uL (0.11-0.59); NEUT % 65.9 %; PLATELET COUNT 209 K/uL (130-400); RED CELL DISTRIBUTION WIDTH CV 13.6 % (11.5-14.5); RED CELL DISTRIBUTION WIDTH SD 45.3 fL (36.4-46.3); WHITE BLOOD COUNT 7.44 K/uL (4.8-10.8)
[2018-02-19 16:05] LABS: BLOOD UREA NITROGEN 33 mg/dl (7-18); CARBON DIOXIDE 27 mmol/L (21-32); CREATININE 1.07 mg/dl (0.60-1.20); GLUCOSE 214 mg/dl (70-99); POTASSIUM 4.2 mmol/L (3.5-5.1); SODIUM 142 mmol/L (136-145)
[2018-02-20 06:50] LABS: HEMOGLOBIN A1C 8.9 % (4.5-5.6)
== END | disposition home or self-care (01) ==
LOC: C.CPL 14:09
PROVIDERS: ATTEND Surgery
DX: Z01.810 Encounter for preprocedural cardiovascular examination (principal); Z01.812 Encounter for preprocedural laboratory examination

== ENCOUNTER 2018-03-01 09:25 | Inpatient (IN) | payer OTHER ==
[2018-02-15 11:30] VITALS: BMI 47.0
--- NOTE | 2018-02-19 14:40 | PAT Medication Instructions ---
"Service Date Feb 19, 2018. Current Home Medication List Acetaminophen (Tylenol), 650 MG PO Q6H PRN for Pain Alendronate Sodium (Fosamax), 70 MG PO WK Ascorbic Acid (Ascorbic Acid), 1,000 MG PO QAM Aspirin (Aspir-81), 81 MG PO HS Atorvastatin (Lipitor), 80 MG PO QPM B-Complex Vitamins (Vitamin B Complex), 1 TAB PO QAM Brimonidine Tartrate (Alphagan P Oph), 2 DROPS OPR BID Calcium Carbonate (Tums), 2 TAB PO Q8H PRN for REFLUX Calcium Carbonate-Vitamin D (Calcium + D), 1 TAB PO BID Cholecalciferol (Vitamin D3), 4,000 UNITS PO QAM Clonazepam (Klonopin), 0.5 MG PO HS Docusate Sodium (Colace), 100 MG PO BID Folic Acid (Folvite), 1 MG PO QAM Glucagon (Glucagon Emergency Kit), 1 MG IM for Hypoglycemia Protocol Guaifenesin (Tussin Adult), 10 ML PO Q6H PRN for Cough Insulin Aspart (Novolog), 38 UNITS SQ TIDM Insulin Aspart (Novolog), 2-10 UNITS SQ TIDM Insulin Detemir (Levemir), 15 UNITS SC HS Insulin Detemir (Levemir), 45 UNITS SQ QAM Latanoprost (Xalatan 0.005% Oph Ninfa), 1 DROP OPB HS Lisinopril (Zestril), 5 MG PO 1230 Magnesium Hydroxide (Milk Of Magnesia), 30 ML PO for Constipation Methenamine Hippurate (Methenamine Hippurate), 1 GM PO HS Multivitamin (Multivitamin), 1 TAB PO QAM Nystatin/Triamcinolone (Mycogen ||), 1 DOSE TOP UD PRN for RN Omeprazole (Prilosec), 20 MG PO QAM Paroxetine HCl (Paroxetine), 30 MG PO QAM Risperidone (Risperdal Consta), 37.5 UNITS IM [id number] Senna/Docusate Sod (Senokot S), 1 TAB PO BID Sodium Phosphate/Biphosphate (Fleet Enema), 1 EA AK PRN Tamsulosin HCl (Tamsulosin HCl), 0.4 MG PO HS Vitamin E (Vitamin E), 400 UNITS PO BID [Dulcolax Supp], 1 DOSE RE PRN [Voltaren Gel], 1 DOSE TOP Q8H PRN for workers' compensation claims examiner Instructions For Your Scheduled Surgery - Check with surgeon and prescribing physician for instructions: Aspirin (Aspir-81), 81 MG PO HS - Hold the following medications starting 02/19/18: Vitamin E (Vitamin E), 400 UNITS PO BID - Continue as directed: Risperidone (Risperdal Consta), 37.5 UNITS IM [id number] Glucagon (Glucagon Emergency Kit), 1 MG IM for Hypoglycemia Protocol - Hold the following medications 24 hours prior to surgery: [Voltaren Gel], 1 DOSE TOP Q8H PRN for RN Nystatin/Triamcinolone (Mycogen ||), 1 DOSE TOP UD PRN for RN - Hold the following medications the morning of surgery: [Dulcolax Supp], 1 DOSE RE PRN Sodium Phosphate/Biphosphate (Fleet Enema), 1 EA AK PRN Senna/Docusate Sod (Senokot S), 1 TAB PO BID Lisinopril (Zestril), 5 MG PO 1230 Magnesium Hydroxide (Milk Of Magnesia), 30 ML PO for Constipation Insulin Aspart (Novolog), 38 UNITS SQ TIDM Insulin Aspart (Novolog), 2-10 UNITS SQ TIDM Guaifenesin (Tussin Adult), 10 ML PO Q6H PRN for Cough' Docusate Sodium (Colace), 100 MG PO BID Folic Acid (Folvite), 1 MG PO QAM Multivitamin (Multivitamin), 1 TAB PO QAM Calcium Carbonate (Tums), 2 TAB PO Q8H PRN for REFLUX Calcium Carbonate-Vitamin D (Calcium + D), 1 TAB PO BID Cholecalciferol (Vitamin D3), 4,000 UNITS PO QAM B-Complex Vitamins (Vitamin B Complex), 1 TAB PO QAM - Take the following medications the morning of surgery with a sip of water: Acetaminophen (Tylenol), 650 MG PO Q6H PRN for Pain (okay to take up to 4 hours prior to surgery if needed) Alendronate Sodium (Fosamax), 70 MG PO WK Ascorbic Acid (Ascorbic Acid), 1,000 MG PO QAM Brimonidine Tartrate (Alphagan P Oph), 2 DROPS OPR BID Omeprazole (Prilosec), 20 MG PO QAM Paroxetine HCl (Paroxetine), 30 MG PO QAM - Take the following medications as scheduled the night before surgery: Acetaminophen (Tylenol), 650 MG PO Q6H PRN for Pain (if needed) [Dulcolax Supp], 1 DOSE RE PRN (if needed) Tamsulosin HCl (Tamsulosin HCl), 0.4 MG PO HS Sodium Phosphate/Biphosphate (Fleet Enema), 1 EA AK PRN (if needed) Senna/Docusate Sod (Senokot S), 1 TAB PO BID Methenamine Hippurate (Methenamine Hippurate), 1 GM PO HS Magnesium Hydroxide (Milk Of Magnesia), 30 ML PO for Constipation (if needed) Latanoprost (Xalatan 0.005% Oph Ninfa), 1 DROP OPB HS Insulin Aspart (Novolog), 38 UNITS SQ TIDM Insulin Aspart (Novolog), 2-10 UNITS SQ TIDM Insulin Detemir (Levemir), 15 UNITS SC HS Guaifenesin (Tussin Adult), 10 ML PO Q6H PRN for Cough (if needed) Docusate Sodium (Colace), 100 MG PO BID Clonazepam (Klonopin), 0.5 MG PO HS Calcium Carbonate (Tums), 2 TAB PO Q8H PRN for REFLUX (if needed) Calcium Carbonate-Vitamin D (Calcium + D), 1 TAB PO BID Atorvastatin (Lipitor), 80 MG PO QPM Guaifenesin (Tussin Adult), 10 ML PO Q6H PRN for Cough' (if needed) - For Insulin Dependent Diabetic patients: Test blood sugar A.M. of surgery. - If Blood sugar greater than 150 , take half of your regular dose of: Insulin Detemir (Levemir), take 22 units - If blood sugar less than 150, do not take any: Insulin Detemir (Levemir ) If you have any questions please call us at [phone] or [phone] or [phone]"
[~2018-03-01] VITALS: Ht 142.2 cm; Wt 93.6 kg
[~2018-03-01 09:25] MED LIST changes: -ERYTTAB PO; -INSU100I; +LACTATED RINGER'S 1000ML 1,000 ML IV SCH; -MAGN1POW16; -NEOM500T PO; -SULF800T23 PO
[2018-03-01 10:03] VITALS: BP 151/75; PULSE 91; TEMP 36.8; O2SAT 92; BMI 45.0
--- NOTE | 2018-03-01 11:15 | History & Physical Bridge Note ---
H&P Re-Evaluation Bridge Note: I have examined the patient, reviewed the History & Physical and in the interval since the performance of the History & Physical I have noted the following changes of clinical significance: No changes noted SO at bedside all questions answered
[2018-03-01] MEDS ORDERED: BUPIVACAINE 0.5 % 5 MG/1 ML PF 10ML VIAL ONE (11:22)
[2018-03-01] MEDS ORDERED: ERYTTAB PO (11:31)
[2018-03-01] MEDS ORDERED: MAGN1POW16 (11:31)
[2018-03-01] MEDS ORDERED: INSU100I (11:31)
[2018-03-01] MEDS ORDERED: SULF800T23 PO (11:31)
[2018-03-01] MEDS ORDERED: NEOM500T PO (11:31)
[2018-03-01] MEDS ORDERED: MIDAZOLAM HCL 1 MG/ML 2ML VIAL ONE (11:33)
[2018-03-01] MEDS ORDERED: FENTANYL CITRATE INJ 50 MCG/1 ML 2 ML VIAL ONE ×3 (11:33→12:47)
[2018-03-01] MEDS ORDERED: CEFOXITIN SOD 1 GM VIAL ONE ×2 (12:19→12:21)
[2018-03-01] MEDS ORDERED: PHENYLEPHRINE 100MCG/ML 5ML SYR ONE (12:46)
[2018-03-01] MEDS ORDERED: LABETALOL HCL IV 5 MG/ML 20ML ONE (12:46)
[2018-03-01] MEDS ORDERED: PROPOFOL IV EMULSION 10 MG/ML 20 ML VIAL ONE (12:46)
[2018-03-01] MEDS ORDERED: NEOSTIGMINE METHYLSULFATE 5 MG/5 ML SYR ONE (12:46)
[2018-03-01] MEDS ORDERED: GLYCOPYRROLATE INJ 0.2 MG/ML VIAL ONE (12:46)
[2018-03-01] MEDS ORDERED: ONDANSETRON INJ 2 MG/ML 2 ML VIAL ONE ×2 (12:46→14:42)
[2018-03-01] MEDS ORDERED: LIDOCAINE HCL 2% 2 ML VIAL (20MG/ML) ONE (12:46)
[2018-03-01] MEDS ORDERED: CISATRACURIUM BESYLATE IV SOLN 2 MG/ML 10 ML VIAL ONE (12:46)
[2018-03-01] MEDS ORDERED: DEXAMETHASONE SOD INJ 4 MG/ML VIAL ONE (12:46)
--- NOTE | 2018-03-01 14:05 | [facility] Post Operative Brief Note ---
Immediate Operative Summary Operative Date Mar 01, 2018. Pre-Operative Diagnosis 2 cm ascending colon polyp Post-Operative Diagnosis 2 cm ascending colon polyp Procedure(s) Performed Right Side Laparoscopic Assisted Colon Resection Surgeon Dr. Dave Abraham Liner Machine Operator Helper Surgeon(s) Dilshad Bingham PA-C Estimated Blood Loss 150ml Findings See Below see post op Specimens Permanent Solution: A) Cecum, Ascending Colon, and Part of Transverse Colon B) Portion of Terminal Ileum Drains 1/4 inch sub cut Anesthesia Type General
[2018-03-01] MEDS ORDERED: GLUCOSE 40% GEL 15 GM TUBE PO PRN (14:15)
[2018-03-01] MEDS ORDERED: GLUCOSE 10 TABS/TUBE PO PRN (14:15)
[2018-03-01] MEDS ORDERED: NALOXONE HCL 0.4 MG/1 ML VIAL/CARP IV PRN ×2 (14:15→14:45)
[2018-03-01] MEDS ORDERED: GLUCAGON FOR INJ 1 MG VIAL SQ PRN (14:15)
[2018-03-01] MEDS ORDERED: ONDANSETRON INJ 2 MG/ML 2 ML VIAL IV PRN ×2 (14:15→14:45)
[2018-03-01] MEDS ORDERED: CARBOHYDRATES FOR HYPOGLYCEMIA PO PRN (14:15)
[2018-03-01] MEDS ORDERED: ACETAMINOPHEN IV 100 ML IV PRN (14:15)
[2018-03-01] MEDS ORDERED: NYSTATIN/TRIAMCINOLONE OINT 15 GM TUBE EXT PRN (14:15)
[2018-03-01] MEDS ORDERED: PHARMACY GLYCEMIC MGMT CONSULT PRN (14:32)
[2018-03-01] MEDS ORDERED: LABETALOL HCL IV 5 MG/ML 20ML IV PRN (14:45)
[2018-03-01] MEDS ORDERED: FENTANYL CITRATE INJ 50 MCG/1 ML 2 ML VIAL IV PRN (14:45)
[2018-03-01] MEDS ORDERED: ATROPINE SULFATE 0.1 MG/ML 5ML SYR IV PRN (14:45)
[2018-03-01] MEDS ORDERED: PROMETHAZINE HCL INJ 12.5 MG in SODIUM CHLORIDE 0.9% 50ML 50 ML IV PRN (14:45)
[2018-03-01] MEDS ORDERED: FLUMAZENIL 0.1 MG/1 ML 10 ML VIAL IV PRN (14:45)
[2018-03-01] MEDS ORDERED: EpHEDrine SULFATE INJ 50 MG/ML AMP IV PRN (14:45)
[2018-03-01] MEDS ORDERED: NovoLIN-R INSULIN PER UNIT CHARGE IV STA (14:45)
[2018-03-01] MEDS ORDERED: NovoLIN-R INSULIN PER UNIT CHARGE ONE (14:46)
[2018-03-01] MEDS ORDERED: INSULIN ASPART 100 UNITS/ML 3 ML PEN SC SCH (16:00)
[2018-03-01 16:15] VITALS: BP 120/65; PULSE 96; TEMP 36.3; O2SAT 93
--- NOTE | 2018-03-01 16:34 | Pharmacy Progress Note ---
Glycemic Control Intl Consult Date of Service Mar 01, 2018. Scope Glycemic Pharmacist consulted by LUISA Castañeda on 03/01/18 for glycemic control and to write orders per [facility] inpatient glycemic control protocol Objective Weight (Kilograms): 91.5 Accuchecks BSG (last 24hrs): Test 03/01/18 09:45 Bedside Glucose 158 mg/dl (70-90) Recent Pertinent Medications Outpatient Anti-diabetic Regimen: * Levemir 45 units qAM, 15 units qHS * Novolog 38 units with meals + sliding scale * TDD = 174+ units/day * A1c = 8.9 % 02/19/18 The patient received so far today: * 5 units of Regular IV in PACU Risk Factors for Insulin Resistance: * Steroids: Decadron 4 mg IV in OR * Recent Surgery: POD 0 s/p colectomy, received general anesthesia * Diet: NPO Assessment & Plan ASSESSMENT: * 62 y/o female admitted s/p colectomy. She is a resident at [facility] and has her type 2 diabetes managed with basal/bolus insulin. * Her insulin doses seemed quite elevated for her weight so I called [facility] to get insulin dosing info and did not receive much help. I eventually found scanned documents from the [facility] earlier this month and confirmed the Levemir and Novolog doses. * The patient did not receive any basal insulin this AM, hence the reason why she had a BSG of 208 mg/dL in PACU * At this point, she is basal deficient so will replete her AM dose of Levemir and schedule further BID dosing depending on BSGs. * Outpatient bolus doses are very heavy - will utilize CF/CR while an inpatient based on TDD of ~174 units PLAN FOR INPATIENT GLYCEMIC CONTROL: * Basal insulin with Levemir 50 units x 1 now, then BID (to start at midnight) as per the following scale: * 15 units for BSG < 140 * 25 units for BSG 140-180 * 35 units for BSG > 180 * Correctional Insulin with NOVOLOG per scale q4h * Goal Range: Low 110 mg/dL - High 140 mg/dL * Correction Factor: 10 mg/dL/unit * Nutritional / Prandial insulin per carb ratio of 1 unit per 3 grams CHO consumed * Please note that the plan above was derived based on current level of insulin resistance and hospital stress. These recommendations are appropriate for inpatient admission only. Plan of care upon discharge will need to be reassessed to avoid potential outpatient hypo/hyperglycemia. Thank you.
[2018-03-01] MEDS ORDERED: INSULIN DETEMIR FLEXPEN/FLEX TOUCH 100 UNITS/ML 3ML SC ONE ×2 (16:41→17:00)
--- NOTE | 2018-03-01 16:43 | Anesthesiology Progress Note ---
Anesthesia Post Op Note Date & Time Mar 01, 2018 at 16:43 Vital Signs Pain Intensity: 0 Vital Signs Past 12 Hours Date Time Temp Pulse Resp B/P (MAP) Pulse Ox O2 Delivery O2 Flow Rate FiO2 03/01/18 15:55 88 16 120/55 93 Room Air 03/01/18 15:45 89 15 113/56 93 Room Air 03/01/18 15:35 36.6 90 19 129/47 94 Room Air 03/01/18 15:25 88 14 109/58 100 Room Air 03/01/18 15:15 36.6 86 16 129/51 100 Oxymask 4 Arterial Line 03/01/18 15:05 85 12 114/56 100 Oxymask 4 109/40 03/01/18 14:55 86 12 121/57 100 Oxymask 4 107/62 03/01/18 14:45 84 12 144/62 100 Oxymask 10 111/72 03/01/18 14:35 84 12 145/75 100 Oxymask 10 146/50 03/01/18 14:25 36.2 84 14 155/71 100 Oxymask 10 03/01/18 10:03 36.8 91 18 151/75 92 Room Air Notes Mental Status: alert / awake / arousable, participated in evaluation Pt Amnestic to Procedure: Yes Nausea / Vomiting: adequately controlled Pain: adequately controlled Airway Patency, RR, SpO2: stable & adequate BP & HR: stable & adequate Hydration State: stable & adequate Anesthetic Complications: no major complications apparent
[2018-03-01 17:21] VITALS: BP 130/37; PULSE 92; O2SAT 94
[2018-03-01] MEDS: SODIUM CHLORIDE 0.9% 1000ML 1,000 ML IV SCH ×2 (17:33→17:37)
[2018-03-01] MEDS: INSULIN ASPART 100 UNITS/ML 3 ML PEN SC SCH ×2 (17:35→20:20)
[2018-03-01 18:02] VITALS: BP 136/43; PULSE 96; O2SAT 92
[2018-03-01] MEDS ORDERED: NURSING VERBAL MED ORDER ONE (18:30)
[2018-03-01] MEDS ORDERED: LORAZEPAM 2 MG/ML 1 ML VIAL IV PRN (18:45)
--- NOTE | 2018-03-01 18:48 | Medical Consult ---
"Consultation Date of Consultation: Mar 01, 2018. Attending Physician: Dave Abraham M.D. Reason for Consultation: Post-op med management, DM, HTN History of Present Illness This pt is a 62 yo female with a h/o schizophrenia, JOSE R, depression, PAD with bilat BKAs, HTN, DMII, CAD s/o 2 stents, GERD, insomnia, COPD, and obesity, who is here for right hemicolectomy for large ascending colon polyp. No concerns post-operatively. A drain was placed from the abdomen and she is currently with an NGT to LIS. Pt with very flat affect and was drowsy, but did open here eyes and eventually answer questions when I saw her. She denies CP or SOB, said some abd pain. She is on a multitude of medications, most of which cannot be given currently due to her NPO status. Past Medical/Surgical History PMH: Schizophrenia JOSE R Depression PAD with bilat BKAs HTN DMII CAD s/o 2 stents GERD Insomnia COPD Obesity Colon polyps PSH: Left AKA Right BKA Left toe amputation LLE fem-pop bypass Family History noncontributory Social History Smoking Status: Current Some Day Smoker Drug Use: none Marital Status: in relationship Housing Status: intermediate Occupation Status: disabled Allergies Coded Allergies: Carbamazepine (Verified Allergy, Unknown, unknown, 03/01/18) Citalopram (Verified Allergy, Unknown, unknown, 03/01/18) Codeine (Verified Allergy, Unknown, unknown, 03/01/18) Cyclobenzaprine (Verified Allergy, Unknown, unknown, 03/01/18) Escitalopram (Verified Allergy, Unknown, unknown, 03/01/18) Fluoxetine (Verified Allergy, Unknown, unknown, 03/01/18) Linezolid (Verified Allergy, Unknown, unknown, 03/01/18) Morphine (Verified Allergy, Unknown, unknown, 03/01/18) Oxycodone (Verified Allergy, Unknown, unknown, 03/01/18) Propoxyphene (Verified Allergy, Unknown, unknown, 03/01/18) Shellfish (Verified Allergy, Unknown, unknown, 03/01/18) Shellfish Allergy (Verified Allergy, Unknown, Unknown, 03/01/18) RD entered this drug allergy 07/03/12 as duplicate of shellfish food allergy. Tramadol (Verified Allergy, Unknown, unknown, 03/01/18) Home Medications Reported Home Medications Medications Dose Route/Sig Max Daily Dose Days Date Category Dose Instructions Bactrim Ds 800MG/160MG (Trimethoprim/Sulfamethoxazole) Tab 1 Tab PO BID 03/01/18 Reported Magnesium Citrate (Magnesium Citrate (Bulk)) 1 Pow Pow 03/01/18 Reported Neomycin Sulfate 500 Mg Tab 2 Tab PO TID 10 03/01/18 Reported Humalog (Insulin Lispro (Human)) 100 Unit/Ml Inj 03/01/18 Reported Erythromycin 500 Mg Tab 1 Tab PO BID 7 03/01/18 Reported [Voltaren Gel] 1 Dose TOP Q8H PRN 02/15/18 Reported Mycogen || (Nystatin/Triamcinolone Acetonide) Oint 1 Dose TOP UD PRN 02/15/18 Reported Fleet Enema (Sodium Phosphate/Biphosphate) Candelaria 1 Ea MD PRN 02/15/18 Reported [Dulcolax Supp] 1 Dose RE PRN 02/15/18 Reported Calcium + D (Calcium Carbonate-Vitamin D) 1 Tab Tab 1 Tab PO BID 02/15/18 Reported Prilosec (Omeprazole) 20 Mg Capcr 20 Mg PO QAM 02/15/18 Reported Fosamax (Alendronate Sodium) 70 Mg Tab 70 Mg PO WK 12/26/17 Reported THURSDAYS Tums (Calcium Carbonate) 500 Mg Chew 2 Tab PO Q8H PRN 12/21/17 Reported Milk Of Magnesia (Magnesium Hydroxide) 30 Ml Susp 30 Ml PO PRN 12/21/17 Reported Glucagon Emergency Kit (Glucagon) 1 Mg Kit 1 Mg IM PRN 12/21/17 Reported Tussin Adult (Guaifenesin) 100 Mg/5 Ml Liq 10 Ml PO Q6H PRN 12/21/17 Reported Tylenol (Acetaminophen) 325 Mg Tab 650 Mg PO Q6H PRN 12/21/17 Reported Novolog (Insulin Aspart) 100 Units/Ml Inj 2-10 Units SQ TIDM 12/21/17 Reported SLIDING SCALE Novolog (Insulin Aspart) 100 Units/Ml Inj 38 Units SQ TIDM 12/21/17 Reported Vitamin E 400 Unit Tab 400 Units PO BID 12/21/17 Reported Senokot S (Senna/Docusate Sodium) 1 Tab Tab 1 Tab PO BID 12/21/17 Reported Colace (Docusate Sodium) 100 Mg Cap 100 Mg PO BID 12/21/17 Reported Vitamin D3 (Cholecalciferol) 2,000 Unit Tab 4,000 Units PO QAM 12/21/17 Reported Lipitor (Atorvastatin Calcium) 80 Mg Tab 80 Mg PO QPM 12/21/17 Reported Levemir (Insulin Detemir) 100 Units/Ml Inj 45 Units SQ QAM 12/21/17 Reported Levemir (Insulin Detemir) 100 Units/Ml Inj 15 Units SC HS 12/21/17 Reported Klonopin (Clonazepam) 0.5 Mg Tab 0.5 Mg PO HS 12/21/17 Reported Paroxetine (Paroxetine HCl) 10 Mg Tab 30 Mg PO QAM 12/21/17 Reported Ascorbic Acid 1,000 Mg Tab 1,000 Mg PO QAM 12/21/17 Reported Tamsulosin HCl 0.4 Mg Cap 0.4 Mg PO HS 01/05/17 Reported Methenamine Hippurate 1 Gm Tab 1 Gm PO HS 01/05/17 Reported Alphagan P Oph (Brimonidine Tartrate) 0.1 % Ninfa 2 Drops OPR BID 07/06/16 Reported Risperdal Consta (Risperidone) 37.5 Mg Inj 37.5 Units IM [id number] 07/06/16 Reported FRIDAYS Multivitamin (Multivitamins) Tab 1 Tab PO QAM 07/06/16 Reported Zestril (Lisinopril) 5 Mg Tab 5 Mg PO 1230 07/06/16 Reported Vitamin B Complex (B-Complex Vitamins) 1 Tab Tab 1 Tab PO QAM 10/30/14 Reported Xalatan 0.005% Oph Ninfa (Latanoprost) 0.005 % Ninfa 1 Drop OPB HS 10/30/14 Reported Aspir-81 (Aspirin) 81 Mg Tab 81 Mg PO HS 11/09/12 Reported Folvite (Folic Acid) 1 Mg Tab 1 Mg PO QAM 06/06/12 Reported Current Inpatient Medications Current Inpatient Medications Medications (Trade) Dose Ordered Sig/Alka Route Start Time Stop Time Status Last Admin Dose Admin Sodium Chloride 1,000 ml @ 125 mls/hr Q8H IV 03/01/18 14:14 03/31/18 14:13 03/01/18 17:37 125 MLS/HR Acetaminophen 100 ml @ 400 mls/hr Q8H PRN IV 03/01/18 14:15 03/31/18 14:14 Ondansetron HCl (Zofran Inj) 4 mg Q6H PRN IV 03/01/18 14:15 03/31/18 14:14 Heparin Sodium (Porcine) (Heparin Sq 5000 Unit/0.5ml) 5,000 unit Q12 SQ 03/01/18 21:00 03/31/18 20:59 UNV Glucose (Glucose 40% Gel) 15-30 GRAMS 15 GRAMS... UD PRN PO 03/01/18 14:15 03/31/18 14:14 Glucose (Glucose Chew Tab) 4-8 Tablets 4 Tabl... UD PRN PO 03/01/18 14:15 03/31/18 14:14 Dextrose (Dextrose 50% 50ML Syringe) 25-50ML 25ML FOR ... UD PRN IV 03/01/18 14:15 03/31/18 14:14 Glucagon (Glucagon Inj) 1 mg UD PRN SQ 03/01/18 14:15 03/31/18 14:14 Carbohydrates (Carbohydrates For Hypoglycemia) 15-30 GRAMS 15 grams if BSG 54-69... UD PRN PO 03/01/18 14:15 03/31/18 14:14 Miscellaneous Information (Consult Glycemic Management Pharmacy) 1 ea UD PRN N/A 03/01/18 14:32 03/31/18 14:31 Naloxone HCl (Narcan Inj) 0.1 mg Q5M PRN IV 03/01/18 14:15 03/31/18 14:14 Hydromorphone HCl (Dilaudid Glove Presser) 25 mg PRN PRN IV 03/01/18 14:15 03/15/18 14:14 Sodium Chloride 1,000 ml @ 15 mls/hr Q24H IV 03/01/18 14:14 03/31/18 14:13 03/01/18 17:33 15 MLS/HR Aspirin (Ecotrin Tab) 81 mg HS PO 03/01/18 21:00 03/31/18 20:59 Nystatin/ Triamcinolone Acetonide (Mycogen II Oint) 1 appln QID PRN EXT 03/01/18 14:15 03/31/18 14:14 Trimethoprim/ Sulfamethoxazole (Septra Ds 800/ 160MG Tab) 1 tab BID PO 03/01/18 21:00 03/06/18 20:59 Tamsulosin HCl (Flomax Cap) 0.4 mg HS PO 03/01/18 21:00 03/31/18 20:59 Paroxetine HCl (pAXil) 30 mg QAM PO 03/02/18 09:00 04/01/18 08:59 Miscellaneous Information (Order Awaiting Action) 1 ea QS N/A 03/02/18 00:00 04/01/18 00:00 Cefoxitin Sodium 2000 mg/Dextrose 60 ml @ 100 mls/hr Q6H IV 03/01/18 22:00 03/02/18 10:35 Pantoprazole Sodium 40 mg/ Syringe 10 ml @ 5 mls/min DAILY@11 IV 03/02/18 11:00 04/01/18 10:59 Fentanyl Citrate (Fentanyl Inj) 25 mcg Q5M PRN IV 03/01/18 14:45 03/01/18 21:00 Naloxone HCl (Narcan Inj) 0.2 mg Q2M PRN IV 03/01/18 14:45 03/01/18 21:00 Flumazenil (Romazicon Inj) 0.2 mg Q2M PRN IV 03/01/18 14:45 03/01/18 21:00 Ondansetron HCl (Zofran Inj) 4 mg ONE PRN IV 03/01/18 14:45 03/01/18 21:00 Labetalol HCl (Normodyne IV) 5 mg Q5M PRN IV 03/01/18 14:45 03/01/18 21:00 Ephedrine Sulfate (EpHEDrine SULFATE INJ) 5 mg Q5M PRN IV 03/01/18 14:45 03/01/18 21:00 Atropine Sulfate (Atropine Sulfate 0.1mg/ml Inj) 0.5 mg Q1M PRN IV 03/01/18 14:45 03/01/18 21:00 Insulin Detemir (Levemir Flexpen/ FlexTouch) see protocol text BID SC 03/02/18 00:00 04/01/18 00:00 Insulin Aspart (novoLOG ASPART) SLIDING SCALE If C... Q4 SC 03/01/18 17:00 03/31/18 16:59 03/01/18 17:35 5 UNITS Review of Systems Constitutional: No problem reported Eyes: No problem reported ENT: No problem reported Respiratory: No problem reported Cardiovascular: No problem reported Abdomen: No problem reported Musculoskeletal: No problem reported Genitourinary - Female: No problem reported Neurologic: No problem reported Psychiatric: No problem reported Endocrine: No problem reported Hematologic / Lymphatic: No problem reported Integumentary: No problem reported Allergic / Immunologic: No problem reported Physical Exam Date Time Temp Pulse Resp B/P (MAP) Pulse Ox O2 Delivery O2 Flow Rate FiO2 03/01/18 18:02 96 17 136/43 (74) 92 03/01/18 17:21 92 18 130/37 (68) 94 03/01/18 16:15 36.3 96 16 120/65 (83) 93 Room Air 03/01/18 15:55 88 16 120/55 93 Room Air 03/01/18 15:45 89 15 113/56 93 Room Air 03/01/18 15:35 36.6 90 19 129/47 94 Room Air 03/01/18 15:25 88 14 109/58 100 Room Air 03/01/18 15:15 36.6 86 16 129/51 100 Oxymask 4 Arterial Line 03/01/18 15:05 85 12 114/56 100 Oxymask 4 109/40 03/01/18 14:55 86 12 121/57 100 Oxymask 4 107/62 03/01/18 14:45 84 12 144/62 100 Oxymask 10 111/72 03/01/18 14:35 84 12 145/75 100 Oxymask 10 146/50 03/01/18 14:25 36.2 84 14 155/71 100 Oxymask 10 03/01/18 10:03 36.8 91 18 151/75 92 Room Air General Appearance: WD/WN, no apparent distress, + obese Head: normocephalic, atraumatic Eyes: normal inspection, sclerae normal ENT: hearing grossly normal Neck: trachea midline Respiratory/Chest: lungs clear, normal breath sounds, no respiratory distress, no accessory muscle use Cardiovascular: regular rate, rhythm, no edema, no gallop, no JVD, no murmur, normal peripheral pulses Abdomen/GI: soft, + tenderness (mild in midline over incision site, no guarding or rebound), + abnormal bowel sounds (hypoactive), + pertinent finding (dressing c/d/i) Extremities/Musculoskelatal: + pertinent finding (left AKA, Right BKA, no wounds, no edema) Neurologic/Psych: alert, + pertinent finding (very flat affect) Skin: normal color, warm/dry, no rash Laboratory Results Last 24 Hours Test 03/01/18 09:45 03/01/18 14:38 03/01/18 15:16 03/01/18 17:20 Bedside Glucose 158 mg/dl 208 mg/dl 205 mg/dl 190 mg/dl Test 03/01/18 17:49 Assessment & Plan This pt is a 62 yo female with a h/o schizophrenia, JOSE R, depression, PAD with bilat BKAs, HTN, DMII, CAD s/o 2 stents, GERD, insomnia, COPD, and obesity, who is here for right hemicolectomy for large ascending colon polyp. Right hemicolectomy-for large ascending colon polyp -post-op management as per Surgery -NGT and drain in place -keep NPO and adv as tolerated as per Surgery -pain management -watch for ileus -f/u on path result Schizophrenia/JOSE R/Depression-all stable at this time, but not able to take her usual meds until taking po. Does get IM Risperdal [id number] so likely thatis on board -replace po clonazepam currently with prn ativan -restart Paxil when taking po or when able to through NGT CAD s/o 2 stents/HTN/HL/PAD-stable, no evidence of ACS -restart ASA, statin, and lisinopril when able to DMII, on superintendent container terminal insulin, not well controlled-with hyperglycemia here post- op. Pharmacy managing as per primary team consult. HgbA1C 8.9% on 02/19/18 -restarted home Lantus and on SSI -accuchecks q6h COPD-stable, no acute issues. Not on home inhalers -order prn albuterol nebs GERD-stable -continue PPI IV for now Glaucoma-continue home eye drops Obesity, BMI 45.3 -needs weight loss counseling Proph-SCDs only for now Dispo-remain on tele at least overnight Additional Copies To Avinash Urias"
[2018-03-01 19:00] VITALS: BP 104/41; PULSE 100; TEMP 37; O2SAT 90
[2018-03-01] MEDS: HYDROmorphone HCL 0.5MG/ML 50 ML CASSETTE IV PRN (19:04)
[2018-03-01] MEDS: HEPARIN SOD 5000 UNIT/0.5 ML CARP SQ SCH (20:21)
--- NOTE | 2018-03-01 20:52 | OPERATIVE REPORT ---
DATE OF OPERATION: 03/01/2018 SURGEON: Dave Abraham MD SERVICE DELIVERY MANAGEMENT CONSULTANT: Dilshad Bingham PA-C PREOPERATIVE DIAGNOSES: Polypoid lesion, ascending colon; multiple other small polyps by colonoscopy. POSTOPERATIVE DIAGNOSIS: Polypoid lesion, ascending colon; multiple other small polyps by colonoscopy. PROCEDURE: Laparoscopic-assisted right colon resection along with (ascending colon, cecum, hepatic flexure to the transverse colon with ileocolonic anastomosis. SUMMARY: The patient was brought into the operating room theater. Starks catheter was inserted. The abdomen was prepped with Hibiclens and properly draped. Time-out was had. Systemic antibiotic was given. I made a small incision supraumbilically sufficient enough to place a Veress needle followed by CO2, followed by a 5 mm trocar. Once we entered the abdomen, we could see that the patient had a very large omentum. Pancake was seen all over the abdomen all the way above the liver down into both gutters. It was hard to really see any colonic structure at this time. The patient has had a colon lesion on the right. A polypoid lesion that was biopsied was negative, but was about 2 cm in size and had been tattooed. From this approach, I placed a 5 mm right upper quadrant port and tried to move the omentum which we did. I was able to see the cecum and the appendix. There was no evidence of any tattoos in that area. We went up towards the ascending colon. At this time, there were significant lesions in the retroperitoneal area and the white line of Toldt; therefore, I would hesitate to place another 5 mm left lower quadrant port. With this, then we were able to mobilize as much as possible the ascending colon. I could not see any tattoo. We then at this point were able to see that the omentum was completely encasing around the hepatic flexure and the transverse colon, we were getting to a plane of dissection between the greater omentum and the colon itself, we were able to identify all the way to the hepatic flexure from the mid transverse colon, but still were unable to identify any tattoo from that point on all the way to the cecum. Therefore, at this point, I elected to probably convert it to an open procedure since we may be able to elevate and this may be on the antimesenteric border. The patient was very hard to operate on. She had a very obese abdomen, a significant amount of fat tissue on the omentum and a very short mesentery. A midline incision was made extending from below the umbilicus to the mid epigastric deep through the subcutaneous tissue. At this point, I was able to elevate bluntly the cecum, brought it out dividing the retroperitoneal attachments and mobilizing the hepatic flexure to the mid transverse colon and mobilizing the terminal ileum. Even with this, I was not able to identify that the tattoo very well. I could not palpate any significant lesion. We mobilized it more and then probably at mid ascending colon, I could see one small area in the retroperitoneal aspect of the colon that may be consistent with tattoo marking. It said that, I elected to then proceed with a resection since the patient had a 2 cm lesion in the right colon and also multiple other polyps. We divided the terminal ileum approximately 4 inches from the ileocecal valve with a MICHEAL clamp, then also divided the transverse colon to the right of middle colic with another MICHEAL stapler. We scored the mesentery mostly on the root of mesentery, ligating it with 2-0 silk sutures. The specimen was then removed. Once the specimen was removed on the side table, I was able then to cut into the ascending colon, identify the area of tattoo which very minimally evident on the side, could not identify any polypoid lesion. As we cut down towards the cecum itself nearly 2-3 inches above the ileocecal valve, there is a polypoid lesion 2 cm more in size, grossly appearing to be malignant, but biopsy did not describe this. At this point, we were confident that we had the area. The mesentery was then closed with 3-0 silk suture. The 2 staple lines were oversewn with interrupted 3-0 silk suture. We did a [id number] anastomosis with 3-0 silk outer layer, 3-0 chromic inner layer. The anastomosis could accommodate 2 fingers. The viability of both staple line was excellent as was the anastomosis. Once the mesentery was closed to avoid any internal rotation, we irrigated the right gutter and returned this viscera into the abdomen, positioned the NG tube in the stomach, replaced the omentum on top underneath the incision. Incision was closed with interrupted #1 PDS sutures. Subcutaneous tissue not closed. Skin edges approximated with mya. We did put a 1/4-inch Arian in the subQ. The procedure was tolerated well by the patient. Estimated blood loss approximately 150 mL. She was taken to recovery in good condition. I attest to the content of the Intraoperative Record and any orders documented therein. Any exceptions are noted below. MTDD
[2018-03-01] MEDS ORDERED: SULFAMETHOXAZOLE/TRIMETHOPRIM DS 800/160MG TAB PO SCH (21:00)
[2018-03-01] MEDS ORDERED: INSULIN DETEMIR FLEXPEN/FLEX TOUCH 100 UNITS/ML 3ML SC SCH (21:00)
[2018-03-01] MEDS: CEFOXITIN IV 2,000 MG in DEXTROSE 5% 50ML 50 ML IV SCH (21:08)
[2018-03-01] MEDS ORDERED: ALBUTEROL 0.083% NEBU SOLN 3 ML VIAL INH PRN (22:30)
[2018-03-02] VITALS (8 sets, daily range): BP systolic 90–157; BP diastolic 47–66; PULSE 87–106; TEMP 36.3–38.1; O2SAT 91–96; Ht 142.2 cm; Wt 93.6 kg
[2018-03-02] MEDS ORDERED: INSULIN ASPART 100 UNITS/ML 3 ML PEN SC SCH
[2018-03-02] MEDS: INSULIN ASPART 100 UNITS/ML 3 ML PEN SC SCH ×4 (00:42→18:25)
[2018-03-02] MEDS: SODIUM CHLORIDE 0.9% 1000ML 1,000 ML IV SCH ×5 (02:45→18:26)
[2018-03-02] MEDS: CEFOXITIN IV 2,000 MG in DEXTROSE 5% 50ML 50 ML IV SCH ×2 (04:33→08:54)
[2018-03-02 05:54] LABS: BASO % 0.1 %; BASO ABS # 0.01 K/uL (0-0.2); EOS % 0.1 %; EOS ABS # 0.01 K/uL (0-0.5); HEMATOCRIT 39.3 % (37-47); HEMOGLOBIN 12.5 g/dL (12.0-16.0); IG# 0.01 K/uL (0.00-0.02); LYMPH % 10.7 %; LYMPH ABS # 0.97 K/uL (1.2-3.4); MEAN CELL VOLUME 94.2 fL (80-100); MEAN CORPUSCULAR HGB CONC 31.8 g/dl (32-36); MEAN PLATELET VOLUME 10.6 fL (7.4-10.4); MONO % 10.8 %; MONO ABS # 0.98 K/uL (0.11-0.59); NEUT % 78.2 %; NEUT ABS # 7.07 K/uL (1.4-6.5); PLATELET COUNT 208 K/uL (130-400); RED CELL DISTRIBUTION WIDTH SD 47.9 fL (36.4-46.3); WHITE BLOOD COUNT 9.05 K/uL (4.8-10.8)
[2018-03-02 06:20] LABS: CALCIUM 7.9 mg/dl (8.5-10.1); CREATININE 2.44 mg/dl (0.60-1.20); POTASSIUM 4.7 mmol/L (3.5-5.1)
--- NOTE | 2018-03-02 07:41 | Clinical Documentation Query ---
CLINICAL DOCUMENTATION QUERY Dr. CARPIO, In your clinical opinion is this patient being managed for: ( x ) Acute kidney failure (I already put GREYSON in my note) ( ) Not Agree ( ) Other explanation of clinical findings (No explanation is considered a No Response) ( ) Unable to determine ( ) Need to Discuss (Phone CDS or qliq) (No discussion is considered a No Response) The medical record reflects the following clinical findings, treatment, and risk factors. Clinical Indicators: 62 yo female presenting with colon polyps for a R colon resection. Fasting labs 03/02 revealed Cr 2.44. Review of historical Cr revealed range of 0.80-1.07. Treatment: IV fluids, monitor PRP's Risk Factors: age, surgery, HTN, DM, CAD, COPD Please clarify and document your clinical opinion in the progress notes and discharge summary. Terms such as "probable", "suspected", "likely", "questionable", "possible", or "still to be ruled out" are acceptable. IF IN AGREEMENT, YOU MUST DOCUMENT ABOVE DIAGNOSTIC STATEMENT IN DAILY PROGRESS NOTES AND DISCHARGE SUMMARY. This document is not part of the patient's record. Thank You, Julianna Garcia, RN [phone]
[2018-03-02] MEDS: ALPHAGAN~ORDER AWAITING ACTION SCH ×3 (08:00→15:56)
[2018-03-02] MEDS: PAROXETINE 30 MG TAB PO SCH (08:36)
--- NOTE | 2018-03-02 08:38 | SURGERY PROGRESS NOTE ---
DATE: 03/02/2018 Antionette is resting fairly comfortably. She is very hard to read whether or not she is having discomfort, but she was sleeping with no apparent distress. The left hand is perfectly normal. She had a brachial artery arterial catheter in during the procedure. Her last vitals showed a temperature of 36.7, pulse 87, respiration 18, blood pressure 132/47, O2 sat 96 on 1 liter. I and Os, she had 125 mL urine overnight. The laboratory this morning her hemoglobin is 12.5, WBC is 9.05. Chemistries: BUN 22, creatinine 2.44. At this time, we will take the NG tube out and just start her on some water sips and ice chips and meds. Hold off feeding until we have a bowel movement.
[2018-03-02] MEDS: HEPARIN SOD 5000 UNIT/0.5 ML CARP SQ SCH ×2 (08:48→22:03)
[2018-03-02] MEDS: PANTOprazole INJ 40 MG in SYRINGE 0 ML IV SCH (08:54)
--- NOTE | 2018-03-02 08:54 | Pharmacy Progress Note ---
Pharmacy Glycemic Short Note 2 Date of Service Mar 02, 2018. OUTPATIENT ANTIDIABETIC REGIMEN: * Levemir 45 units qAM, 15 units qHS * Novolog 38 units with meals + sliding scale * TDD = 174+ units/day * A1c = 8.9 % 02/19/18 Item Value Date Time Bedside Glucose 158 mg/dl H 03/01/18 0945 Bedside Glucose 208 mg/dl H 03/01/18 1438 Bedside Glucose 205 mg/dl H 03/01/18 1516 Bedside Glucose 190 mg/dl H 03/01/18 1720 Bedside Glucose 194 mg/dl H 03/01/182010 Bedside Glucose 159 mg/dl H 03/02/18 0022 Bedside Glucose 132 mg/dl H 03/02/18 0406 Random Glucose 141 mg/dl H 03/02/18 0533 ASSESSMENT: * 62 y/o female admitted s/p colectomy. She is a resident at [facility] and has her type 2 diabetes managed with basal/bolus insulin. Outpatient insulin dosing confirmed with [facility]. * Pt with hyperglycemia yesterday secondary to basal insulin deficiency (non given UTILIZATION MANAGEMENT UM NURSE) and DEXAMETHASONE given in OR * BSGs significantly improved today with additional basal insulin to cover long -acting steroid induced hyperglycemia * Pt received 88 units of insulin 03/01/18 * 75 units of basal * 13 units of prandial/correctional (low d/t pt NPO) * BSGs 158-208 mg/dl * Pt still NPO post-op --> will need to adjust basal insulin doses accordingly. * Outpatient basal insulin dosing is 60 units/day; with 75% of dose given in morning and 25% of dose given in HS * Will reduce outpatient basal insulin dosing by 10-30% for NPO. Dosing based on BSG * Pt with LOW BSG (68mg/dl) at 1200 today. Will further reduce basal insulin to prevent repeat low * Outpatient bolus doses are very heavy - will utilize CF/CR while an inpatient based on TDD of ~174 units PLAN FOR INPATIENT GLYCEMIC CONTROL: * Hold outpatient oral diabetes medications * Basal insulin * Lantus SQ BID --> reduced outpatient dosing for NPO; dose reduction based on BSG * QAM dosing --> Lantus 20-40 units BSG below 110 mg/dl --> 20 units (~40% outpatient dosing) BSG 110-200 mg/dl --> 30 units (2/3 of outpatient dosing) BSG above 200 mg/dl --> 40 units (~90% of outpatient dosing) * HS dosing --> Lantus 0-15 units BSG below 110 mg/dl --> 0 units (0% outpatient dosing) BSG 110-200 mg/dl --> 5 units (1/3 of outpatient dosing) BSG above 200 mg/dl --> 10 units (2/3 outpatient dosing) * Bolus insulin * NovoLog per scale ACHS or Q6hrs while NPO * Goal Range: Low 110 mg/dL - High 140 mg/dL * Correction Factor: 10 mg/dL/unit * Nutritional / Prandial insulin per carb ratio of 1 unit per 3 grams CHO consumed
[2018-03-02] MEDS ORDERED: INSULIN DETEMIR FLEXPEN/FLEX TOUCH 100 UNITS/ML 3ML SC SCH ×2 (09:00)
--- NOTE | 2018-03-02 11:28 | Hospitalist Progress Note ---
Hospitalist Progress Note Date of Service Mar 02, 2018. Subjective Pt evaluation today including: conversation w/ patient Voiding: hall catheter in place Had NG tube removed this morning is allowed to have sips and chips of ice. No flatus yet. No nausea or vomiting. Renal function worsened overnight. She is still making urine. Blood pressures have been acceptable. She is more alert and awake today. Says she is having pain in the abdomen. No chest pain or shortness breath. She is asking for more ice chips All Other Systems: Reviewed and Negative Objective Vital Signs Date Time Temp Pulse Resp B/P (MAP) Pulse Ox O2 Delivery O2 Flow Rate FiO2 03/02/18 08:00 Nasal Cannula 1.0 03/02/18 07:51 36.7 87 18 132/47 (75) 96 Nasal Cannula 1.0 03/02/18 02:48 37.1 97 17 114/62 (79) 95 Room Air 03/02/18 00:00 36.7 94 14 113/53 (73) 91 Room Air 03/01/18 23:59 Nasal Cannula 2.0 03/01/18 20:00 Room Air 03/01/18 19:00 37.0 100 20 104/41 (62) 90 Room Air 03/01/18 18:02 96 17 136/43 (74) 92 03/01/18 17:21 92 18 130/37 (68) 94 03/01/18 16:15 36.3 96 16 120/65 (83) 93 Room Air 03/01/18 15:55 88 16 120/55 93 Room Air 03/01/18 15:45 89 15 113/56 93 Room Air 03/01/18 15:35 36.6 90 19 129/47 94 Room Air 03/01/18 15:25 88 14 109/58 100 Room Air 03/01/18 15:15 36.6 86 16 129/51 100 Oxymask 4 Arterial Line 03/01/18 15:05 85 12 114/56 100 Oxymask 4 109/40 03/01/18 14:55 86 12 121/57 100 Oxymask 4 107/62 03/01/18 14:45 84 12 144/62 100 Oxymask 10 111/72 03/01/18 14:35 84 12 145/75 100 Oxymask 10 146/50 03/01/18 14:25 36.2 84 14 155/71 100 Oxymask 10 Physical Exam General Appearance: WD/WN, no apparent distress, + obese Eyes: normal inspection, sclerae normal ENT: hearing grossly normal Neck: trachea midline Respiratory/Chest: lungs clear, normal breath sounds, no respiratory distress, no accessory muscle use Cardiovascular: regular rate, rhythm, no murmur Abdomen: soft, + abnormal bowel sounds (Hypoactive), + pertinent finding ( Minimal tenderness over incision site, dressing clean dry and intact in the midline in the right lower quadrant) Extremities: + pertinent finding (BKA and AKA) Neurologic/Psychiatric: alert, + pertinent finding (Flat affect) Skin: normal color, warm/dry, no rash Laboratory Results Last 24 Hours Test 03/01/18 14:38 03/01/18 15:16 03/01/18 17:20 03/01/18 17:49 Bedside Glucose 208 mg/dl 205 mg/dl 190 mg/dl Prothrombin Time 10.0 SECONDS Prothromb Time International Ratio 1.0 Test 03/01/18 20:11 03/02/18 00:22 03/02/18 04:06 03/02/18 05:33 Bedside Glucose 194 mg/dl 159 mg/dl 132 mg/dl White Blood Count 9.05 K/uL Red Blood Count 4.17 M/uL Hemoglobin 12.5 g/dL Hematocrit 39.3 % Mean Corpuscular Volume 94.2 fL Mean Corpuscular Hemoglobin 30.0 pg Mean Corpuscular Hemoglobin Concent 31.8 g/dl Platelet Count 208 K/uL Mean Platelet Volume 10.6 fL Neutrophils (%) (Auto) 78.2 % Lymphocytes (%) (Auto) 10.7 % Monocytes (%) (Auto) 10.8 % Eosinophils (%) (Auto) 0.1 % Basophils (%) (Auto) 0.1 % Neutrophils # (Auto) 7.07 K/uL Lymphocytes # (Auto) 0.97 K/uL Monocytes # (Auto) 0.98 K/uL Eosinophils # (Auto) 0.01 K/uL Basophils # (Auto) 0.01 K/uL RDW Standard Deviation 47.9 fL RDW Coefficient of Variation 14.0 % Immature Granulocyte % (Auto) 0.1 % Immature Granulocyte # (Auto) 0.01 K/uL Sodium Level 140 mmol/L Potassium Level 4.7 mmol/L Chloride Level 108 mmol/L Carbon Dioxide Level 27 mmol/L Anion Gap 5.0 mmol/L Blood Urea Nitrogen 25 mg/dl Creatinine 2.44 mg/dl Est Creatinine Clear Calc Drug Dose 22.6 ml/min Estimated GFR () 24.1 Estimated GFR (Non- 20.8 BUN/Creatinine Ratio 10.2 Random Glucose 141 mg/dl Calcium Level 7.9 mg/dl Assessment and Plan This pt is a 62 yo female with a h/o schizophrenia, JOSE R, depression, PAD with bilat BKAs, HTN, DMII, CAD s/o 2 stents, GERD, insomnia, COPD, and obesity, who is here for right hemicolectomy for large ascending colon polyp. Right hemicolectomy-for large ascending colon polyp -post-op management as per Surgery -NGT removed -Advance to sips and chips this morning, can take p.o. meds, and adv as tolerated as per Surgery -pain management -watch for ileus -f/u on path result GREYSON-creatinine with rise to 2.44 today from baseline 1.07 a few weeks ago on preoperative labs. Blood pressures have been acceptable at least that her recorded in the chart here, but suspect she could have had some hypotension intraoperatively. Electrolytes are acceptable, volume status is acceptable. Her urine output did decrease slightly, she does have a Hall catheter in place. -Increase IV fluids to 150 ML's per hour of normal saline -Follow BMP -Follow urine output closely -Will not restart lisinopril at this time Schizophrenia/JOSE R/Depression-all stable at this time, is now taking po meds. Does get IM Risperdal [id number] so likely that is on board -Restart po clonazepam -DC as needed Ativan -restart Paxil CAD s/o 2 stents/HTN/HL/PAD-stable, no evidence of ACS -restart ASA, statin today -Hold off on lisinopril due to GREYSON DMII, on termite renewal inspector insulin, not well controlled-with hyperglycemia here post- op. Pharmacy managing as per primary team consult. HgbA1C 8.9% on 02/19/18 -restarted home Lantus and on SSI -accuchecks q6h COPD-stable, no acute issues. Not on home inhalers - prn albuterol nebs GERD-stable -continue PPI IV for now Glaucoma-continue home eye drops Obesity, BMI 45.3 -needs weight loss counseling Proph-SCDs only for now Dispo-remain on telemetry due to worsening renal function
[2018-03-02] MEDS: DEXTROSE 50% 50 ML SYR IV PRN ×2 (12:09→16:45)
[2018-03-02 16:26] LABS: CALCIUM 7.5 mg/dl (8.5-10.1); CREATININE 1.63 mg/dl (0.60-1.20); POTASSIUM 3.6 mmol/L (3.5-5.1)
[2018-03-02] MEDS: LATANOPROST 0.005% OP SOLN 2.5 ML BTL OPB SCH (21:56)
[2018-03-02] MEDS: DOCUSATE SODIUM 100 MG CAP PO SCH (21:57)
[2018-03-02] MEDS: TAMSULOSIN HCL 0.4 MG CAP PO SCH (21:57)
[2018-03-02] MEDS: ASPIRIN 81 MG ECTAB PO SCH (21:58)
[2018-03-02] MEDS: CLONAZEPAM 0.5 MG TAB PO SCH (21:58)
[2018-03-02] MEDS: METHENAMINE HIPPURATE 1 GM TAB PO SCH (22:00)
[2018-03-02] MEDS: ATORVASTATIN 40 MG TAB PO SCH (22:00)
[2018-03-02] MEDS: INSULIN DETEMIR FLEXPEN/FLEX TOUCH 100 UNITS/ML 3ML SC SCH (22:02)
[2018-03-03] VITALS (7 sets, daily range): BP systolic 116–152; BP diastolic 41–77; PULSE 93–101; TEMP 36.6–38; O2SAT 90–94
[2018-03-03] MEDS: INSULIN ASPART 100 UNITS/ML 3 ML PEN SC SCH ×6 (00:50→21:10)
[2018-03-03] MEDS ORDERED: GLUCOSE 10 TABS/TUBE PO STA (01:41)
[2018-03-03] MEDS: SODIUM CHLORIDE 0.9% 1000ML 1,000 ML IV SCH ×2 (02:04→14:14)
[2018-03-03] MEDS ORDERED: INSULIN ASPART 100 UNITS/ML 3 ML PEN SC SCH (03:00)
[2018-03-03 06:30] LABS: BASO % 0.1 %; BASO ABS # 0.01 K/uL (0-0.2); EOS % 0.3 %; EOS ABS # 0.03 K/uL (0-0.5); HEMATOCRIT 35.7 % (37-47); HEMOGLOBIN 11.3 g/dL (12.0-16.0); IG# 0.04 K/uL (0.00-0.02); LYMPH % 11.9 %; LYMPH ABS # 1.08 K/uL (1.2-3.4); MEAN CELL VOLUME 95.5 fL (80-100); MEAN CORPUSCULAR HEMOGLOBIN 30.2 pg (25-34); MEAN CORPUSCULAR HGB CONC 31.7 g/dl (32-36); MEAN PLATELET VOLUME 10.6 fL (7.4-10.4); MONO % 12.3 %; MONO ABS # 1.12 K/uL (0.11-0.59); NEUT ABS # 6.83 K/uL (1.4-6.5); PLATELET COUNT 211 K/uL (130-400); RED CELL DISTRIBUTION WIDTH CV 14.3 % (11.5-14.5); RED CELL DISTRIBUTION WIDTH SD 50.2 fL (36.4-46.3); WHITE BLOOD COUNT 9.11 K/uL (4.8-10.8)
[2018-03-03 07:05] LABS: CALCIUM 7.9 mg/dl (8.5-10.1); CREATININE 1.2 mg/dl (0.60-1.20); POTASSIUM 4.4 mmol/L (3.5-5.1)
--- NOTE | 2018-03-03 07:35 | SURGERY PROGRESS NOTE ---
DATE: 03/03/2018 Antionette is second postoperative day status post laparoscopic-assisted right colon resection along with the hepatic flexure and partially transverse colon. She is resting comfortably this morning. She responds appropriately. She denies any nausea. She has expected abdominal discomfort. Her last vitals showed a temperature of 37.2, pulse 101, respirations 17, blood pressure 127/51, O2 sats 94 on 3 liters. I and O, she had 450 of urine yesterday. We increased her IV fluids in fact the urometer this morning has not been draining out overnight but it seemed like there was about 300 mL. Also of note, we repeated her lab yesterday because her creatinine had jumped up to 2.44 postoperatively and was backed down to 1.63 in the evening. I suspect a lot of that is the dehydration from the bowel prep. Patient's abdomen is softly distended. The incision is intact. The Arina drain is present with minimal drainage. At this point, we will start her on clear liquids. We had taken her NG tube out yesterday and certainly I think she can be transferred to a regular floor if okay with the medical service. The path report at this time is pending.
[2018-03-03] MEDS: ALPHAGAN~ORDER AWAITING ACTION SCH ×4 (08:00→23:55)
--- NOTE | 2018-03-03 08:26 | Pharmacy Progress Note ---
Pharmacy Glycemic Short Note 2 Date of Service Mar 03, 2018. OUTPATIENT ANTIDIABETIC REGIMEN: * Levemir 45 units qAM, 15 units qHS * Novolog 38 units with meals + sliding scale * TDD = 174+ units/day * A1c = 8.9 % 02/19/18 Item Value Date Time Bedside Glucose 158 mg/dl H 03/01/18 0945 Bedside Glucose 208 mg/dl H 03/01/18 1438 Bedside Glucose 205 mg/dl H 03/01/18 1516 Bedside Glucose 190 mg/dl H 03/01/18 1720 Bedside Glucose 194 mg/dl H 03/01/182010 Bedside Glucose 98 mg/dl H 03/02/18 0840 Bedside Glucose 69 mg/dl *L 03/02/18 1202 Bedside Glucose 68 mg/dl *L 03/02/18 1204 Bedside Glucose 122 mg/dl H 03/02/18 1223 Bedside Glucose 59 mg/dl *L 03/02/18 1622 Bedside Glucose 53 mg/dl *L 03/02/18 1642 Bedside Glucose 115 mg/dl H 03/02/18 1702 Bedside Glucose 186 mg/dl H 03/02/18 1751 Bedside Glucose 122 mg/dl H 03/02/18 1945 Bedside Glucose 71 mg/dl 03/03/18 0046 Bedside Glucose 79 mg/dl 03/03/18 0129 Bedside Glucose 82 mg/dl 03/03/18 0303 Bedside Glucose 123 mg/dl H 03/03/18 0620 Bedside Glucose 134 mg/dl H 03/03/18 0737 ASSESSMENT: * 62 y/o female admitted s/p colectomy. She is a resident at [facility] and has her type 2 diabetes managed with basal/bolus insulin. Outpatient insulin dosing confirmed with [facility]. * Pt with sustained HYPOGLYCEMIA yesterday secondary to NPO status and Lantus given for steroid induced hyperglycemia from DEXAMETHASONE given in OR. Extra Lantus was given on 03/01 for hyperglycemia since pt did not take basal insulin prior to surgery and BSGs >200 mg/dl post-operatively. * Diet advanced today to full liquids. BSGs not LOW but are slightly below goal range. Will conservatively titrate insulin dosing back towards outpatient dosing. * Outpatient basal insulin dosing is 60 units/day; with 75% of dose given in morning and 25% of dose given in HS * Will reduce outpatient basal insulin dosing by 10-30% for hypoglycemia. Dosing based on BSG * Will hold Lantus dose this morning and re-assess at lunch time. Will give AM dose at lunch time when BSG > 140mg/dl * Outpatient bolus doses are very heavy - but, d/t repeat lows will loosen CF/ CR for inpatient use. PLAN FOR INPATIENT GLYCEMIC CONTROL: * Hold outpatient oral diabetes medications * Basal insulin * Lantus SQ BID --> reduced outpatient dosing for sustained hypoglycemia; dose reduction based on BSG * QAM dosing --> Lantus 20-40 units BSG below 110 mg/dl --> 20 units (~40% outpatient dosing) BSG 110-200 mg/dl --> 30 units (2/3 of outpatient dosing) BSG above 200 mg/dl --> 40 units (~90% of outpatient dosing) will give this dose at lunchtime instead of QAM on 03/03/18 d /t low BSG overnight * HS dosing --> Lantus 0-10 units BSG below 110 mg/dl --> 0 units (0% outpatient dosing) BSG 110-200 mg/dl --> 5 units (1/3 of outpatient dosing) BSG above 200 mg/dl --> 10 units (2/3 outpatient dosing) * Bolus insulin: loosen parameters * NovoLog per scale ACHS or Q6hrs while NPO * Goal Range: Low 110 mg/dL - High 140 mg/dL * Correction Factor: 20 mg/dL/unit * Nutritional / Prandial insulin per carb ratio of 1 unit per 6 grams CHO consumed
[2018-03-03] MEDS: DOCUSATE SODIUM 100 MG CAP PO SCH ×2 (08:30→21:00)
[2018-03-03] MEDS: PAROXETINE 30 MG TAB PO SCH (08:30)
[2018-03-03] MEDS: SODIUM CHLOR 0.45% + 20MEQ KCL 1,000 ML IV SCH ×2 (08:38→20:11)
[2018-03-03] MEDS: PANTOprazole INJ 40 MG in SYRINGE 0 ML IV SCH (08:39)
[2018-03-03] MEDS: INSULIN DETEMIR FLEXPEN/FLEX TOUCH 100 UNITS/ML 3ML SC SCH ×2 (11:56→21:11)
[2018-03-03] MEDS: HEPARIN SOD 5000 UNIT/0.5 ML CARP SQ SCH ×2 (11:57→21:11)
--- NOTE | 2018-03-03 16:24 | DIAGNOSTIC IMAGING REPORT ---
SINGLE VIEW CHEST CLINICAL HISTORY: Hypoxia. FINDINGS: 2 AP, portable, upright chest radiographs are compared to study dated 02/19/2018. The examination is degraded by portable technique, large body habitus, and patient rotation. The heart is top normal for projection. Mediastinal contour is within normal limits. There is a small right pleural effusion, and trace fluid is noted along the right minor fissure. Opacities are present at both lung bases. No pneumothorax is seen. The skeletal structures are osteopenic. The bony thorax is grossly intact. Arthritic change is noted in the shoulders. IMPRESSION: 1. There is a small right pleural effusion, new from previous. 2. Right basilar opacities likely represent atelectasis. Correlate clinically for evidence of superimposed pneumonia. 3. The left lung appears clear noting basilar atelectasis. Electronically signed by: Irvin Akbar M.D. 03/03/2018 4:22 PM Dictated Date/Time: 03/03/2018 4:19 PM
--- NOTE | 2018-03-03 18:54 | Progress Note ---
Subjective Date of Service: Mar 03, 2018. Subjective Pt evaluation today including: conversation w/ patient, conversation w/ family (significant other at bedside), physical exam, chart review, lab review, review of studies Pain: abdomen - mild Voiding: hall catheter in place not passing flatus or stool yet denies dyspnea or cough no chest pain tele stable overnight Review of Systems Constitutional: No fever Respiratory: No shortness of breath Cardiac: No chest pain, No edema Abdomen: No pain Objective Vital Signs Date Time Temp Pulse Resp B/P (MAP) Pulse Ox O2 Delivery O2 Flow Rate FiO2 03/03/18 15:28 37.1 93 18 122/51 (74) 90 Nasal Cannula 3.0 03/03/18 11:49 36.6 100 20 116/64 (81) 92 03/03/18 08:00 Nasal Cannula 2.0 03/03/18 07:40 37.2 95 16 116/41 (66) 92 Nasal Cannula 3.0 03/03/18 03:08 37.2 101 17 127/51 (76) 94 Nasal Cannula 3.0 03/02/18 23:05 37.1 98 19 90/56 (67) 91 Nasal Cannula 2.0 03/02/18 20:30 37.0 03/02/18 20:00 Nasal Cannula 1.5 03/02/18 19:32 38.1 106 19 123/66 (85) 91 Nasal Cannula 1.5 Physical Exam General Appearance: no apparent distress, + obese ENT: pharynx normal Neck: no JVD Respiratory/Chest: no respiratory distress, no accessory muscle use, + decreased breath sounds (bases) Cardiovascular: regular rate, rhythm, no gallop, no murmur Abdomen: non tender, no organomegaly, + abnormal bowel sounds (decreased), + distended, + pertinent finding (dressings intact on abdominal wall) Extremities: + pertinent finding (b/l BKA status ) Neurologic/Psychiatric: alert, + pertinent finding (flat affect) Laboratory Results Last 24 Hours Test 03/02/18 19:45 03/03/18 00:46 03/03/18 01:29 03/03/18 03:03 Bedside Glucose 122 mg/dl 71 mg/dl 79 mg/dl 82 mg/dl Test 03/03/18 05:57 03/03/18 06:20 03/03/18 07:37 03/03/18 11:31 White Blood Count 9.11 K/uL Red Blood Count 3.74 M/uL Hemoglobin 11.3 g/dL Hematocrit 35.7 % Mean Corpuscular Volume 95.5 fL Mean Corpuscular Hemoglobin 30.2 pg Mean Corpuscular Hemoglobin Concent 31.7 g/dl Platelet Count 211 K/uL Mean Platelet Volume 10.6 fL Neutrophils (%) (Auto) 75.0 % Lymphocytes (%) (Auto) 11.9 % Monocytes (%) (Auto) 12.3 % Eosinophils (%) (Auto) 0.3 % Basophils (%) (Auto) 0.1 % Neutrophils # (Auto) 6.83 K/uL Lymphocytes # (Auto) 1.08 K/uL Monocytes # (Auto) 1.12 K/uL Eosinophils # (Auto) 0.03 K/uL Basophils # (Auto) 0.01 K/uL RDW Standard Deviation 50.2 fL RDW Coefficient of Variation 14.3 % Immature Granulocyte % (Auto) 0.4 % Immature Granulocyte # (Auto) 0.04 K/uL Sodium Level 140 mmol/L Potassium Level 4.4 mmol/L Chloride Level 110 mmol/L Carbon Dioxide Level 24 mmol/L Anion Gap 7.0 mmol/L Blood Urea Nitrogen 18 mg/dl Creatinine 1.20 mg/dl Est Creatinine Clear Calc Drug Dose 45.9 ml/min Estimated GFR () 56.9 Estimated GFR (Non- 49.1 BUN/Creatinine Ratio 15.0 Random Glucose 123 mg/dl Calcium Level 7.9 mg/dl Bedside Glucose 123 mg/dl 134 mg/dl 153 mg/dl Test 03/03/18 16:28 Bedside Glucose 127 mg/dl Assessment and Plan 62 yo female with a h/o schizophrenia, JOSE R, depression, PAD with bilateral BKAs , HTN, DMII, CAD s/p 2 stents, GERD, insomnia, COPD, and morbid obesity with BMI 45 - 1. Right hemicolectomy 2nd to large ascending colon polyp - POD #2 - management per gen surgery. Path pending. 2. acute kidney injury - resolved. Cont to hold lisinopril. 3. hypoxia - 2nd to atelectasis? acute CHF? obesity-hypoventilation syndrome ? COPD? Repeat cxr today, r/o CHF. Wean as tolerated. Significant other reports chronic, severe snoring. Needs outpatient sleep study. 4. Schizophrenia/JOSE R/Depression - stable, continue all outpatient meds. 5. CAD with prior stents - continue asa, statin. No ischemic symptoms at this time. 6. T2DM - pharmacy managing her lantus/novolog; appreciate their assistance. 7. COPD - does not appear to be in exacerbation. Continue home inhalers and incentive spirometry. 8. GERD - PPI. 9. DVT proph - heparin TID. 10. FEN - diet management per surgery; continue fluids; BMP am. 11. Glaucoma - continue home eye drops 12. morbid obesity with BMI 45.3 from medical standpoint can transfer to med/surg today Continued [facility] stay due to: inadequate po fluid intake, inadequate oral pain control, voiding difficulties, ambulation difficulties, multiple IV medications needed Discharge planning: uncertain
[2018-03-03] MEDS: HYDROmorphone HCL 0.5MG/ML 50 ML CASSETTE IV PRN ×2 (19:59→23:13)
[2018-03-03] MEDS: LATANOPROST 0.005% OP SOLN 2.5 ML BTL OPB SCH (21:00)
[2018-03-03] MEDS: METHENAMINE HIPPURATE 1 GM TAB PO SCH (21:00)
[2018-03-03] MEDS: TAMSULOSIN HCL 0.4 MG CAP PO SCH (21:00)
[2018-03-03] MEDS: ASPIRIN 81 MG ECTAB PO SCH (21:00)
[2018-03-03] MEDS: ATORVASTATIN 40 MG TAB PO SCH (21:00)
[2018-03-03] MEDS: CLONAZEPAM 0.5 MG TAB PO SCH (21:00)
[2018-03-04 03:15] VITALS: BP 164/76; PULSE 89; TEMP 37.1; O2SAT 95
[2018-03-04] MEDS: SODIUM CHLOR 0.45% + 20MEQ KCL 1,000 ML IV SCH ×2 (04:57→20:54)
[2018-03-04] MEDS: HEPARIN SOD 5000 UNIT/0.5 ML CARP SQ SCH ×3 (04:58→20:52)
[2018-03-04 06:44] LABS: BASO % 0.4 %; BASO ABS # 0.03 K/uL (0-0.2); EOS % 2.3 %; EOS ABS # 0.17 K/uL (0-0.5); HEMATOCRIT 31.7 % (37-47); HEMOGLOBIN 10.1 g/dL (12.0-16.0); IG# 0.04 K/uL (0.00-0.02); LYMPH % 11.9 %; LYMPH ABS # 0.88 K/uL (1.2-3.4); MEAN CELL VOLUME 95.8 fL (80-100); MEAN CORPUSCULAR HEMOGLOBIN 30.5 pg (25-34); MEAN CORPUSCULAR HGB CONC 31.9 g/dl (32-36); MEAN PLATELET VOLUME 10.3 fL (7.4-10.4); MONO % 8.8 %; MONO ABS # 0.65 K/uL (0.11-0.59); NEUT % 76.1 %; NEUT ABS # 5.65 K/uL (1.4-6.5); PLATELET COUNT 181 K/uL (130-400); RED CELL DISTRIBUTION WIDTH SD 49.2 fL (36.4-46.3); WHITE BLOOD COUNT 7.42 K/uL (4.8-10.8)
[2018-03-04 07:17] LABS: CALCIUM 7.9 mg/dl (8.5-10.1); CREATININE 0.92 mg/dl (0.60-1.20); POTASSIUM 4.6 mmol/L (3.5-5.1)
--- NOTE | 2018-03-04 07:20 | Surgery Progress Note ---
Surgery Progress Note Date of Service Mar 04, 2018. Subjective Post OP Day: 3 + complaints, + pain controlled, + diet (Full liquids), No bowel movement, No flatus, No nausea, No vomiting Objective Vital Signs: Date Time Temp Pulse Resp B/P (MAP) Pulse Ox O2 Delivery O2 Flow Rate FiO2 03/04/18 03:15 37.1 89 16 164/76 (105) 95 Nasal Cannula 4.0 03/03/18 23:40 37.2 95 16 152/77 (102) 93 Nasal Cannula 4.0 03/03/18 23:40 Room Air 03/03/18 20:35 38.0 97 20 119/64 (82) 92 Nasal Cannula 3.0 03/03/18 19:50 Nasal Cannula 03/03/18 19:20 37.1 93 18 90 3.0 03/03/18 15:28 37.1 93 18 122/51 (74) 90 Nasal Cannula 3.0 03/03/18 11:49 36.6 100 20 116/64 (81) 92 03/03/18 08:00 Nasal Cannula 2.0 03/03/18 07:40 37.2 95 16 116/41 (66) 92 Nasal Cannula 3.0 Physical Exam: urine output (hall 827ml yesterday/400ml today) General Appearance: no apparent distress Head: normocephalic, atraumatic Respiratory/Chest: no respiratory distress Abdomen: non distended, soft, no organomegaly Incision(s): clean, dry, intact, no erythema, no drainage Laboratory Results: Results Past 24 Hours Test 03/03/18 07:37 03/03/18 11:31 03/03/18 16:28 03/03/18 20:26 Range/Units Bedside Glucose 134 153 127 203 70-90 mg/dl Test 03/04/18 06:11 Range/Units White Blood Count 7.42 4.8-10.8 K/uL Red Blood Count 3.31 4.2-5.4 M/uL Hemoglobin 10.1 12.0-16.0 g/dL Hematocrit 31.7 37-47 % Mean Corpuscular Volume 95.8 80-100 fL Mean Corpuscular Hemoglobin 30.5 25-34 pg Mean Corpuscular Hemoglobin Concent 31.9 32-36 g/dl Platelet Count 181 130-400 K/uL Mean Platelet Volume 10.3 7.4-10.4 fL Neutrophils (%) (Auto) 76.1 % Lymphocytes (%) (Auto) 11.9 % Monocytes (%) (Auto) 8.8 % Eosinophils (%) (Auto) 2.3 % Basophils (%) (Auto) 0.4 % Neutrophils # (Auto) 5.65 1.4-6.5 K/uL Lymphocytes # (Auto) 0.88 1.2-3.4 K/uL Monocytes # (Auto) 0.65 0.11-0.59 K/uL Eosinophils # (Auto) 0.17 0-0.5 K/uL Basophils # (Auto) 0.03 0-0.2 K/uL RDW Standard Deviation 49.2 36.4-46.3 fL RDW Coefficient of Variation 14.0 11.5-14.5 % Immature Granulocyte % (Auto) 0.5 % Immature Granulocyte # (Auto) 0.04 0.00-0.02 K/uL Assessment & Plan POD #3 s/p laparoscopic-assisted right colon resection along with the hepatic flexure and partially transverse colon. Patient appears somewhat lethargic this morning which seems to be her baseline. No acute distress, abdomen soft, non-distended. incisions c/d/i. Tolerating full liquids, no N/V. Hall w/ 400ml output so far this am. Continue current management, Arina removed. Awaiting return of bowel function. AM labs pending. Patient seen and examined with Dr. Abraham. Please contact with questions or concerns.
[2018-03-04] MEDS: HYDROmorphone HCL 0.5MG/ML 50 ML CASSETTE IV PRN ×2 (07:22→21:37)
[2018-03-04 07:36] VITALS: BP 154/84; PULSE 92; TEMP 36.7; O2SAT 92
[2018-03-04] MEDS: ALPHAGAN~ORDER AWAITING ACTION SCH ×3 (08:00→23:57)
[2018-03-04] MEDS: PAROXETINE 30 MG TAB PO SCH (09:00)
[2018-03-04] MEDS: DOCUSATE SODIUM 100 MG CAP PO SCH ×2 (09:00→20:54)
--- NOTE | 2018-03-04 09:24 | Pharmacy Progress Note ---
Pharmacy Glycemic Short Note 2 Date of Service Mar 04, 2018. OUTPATIENT ANTIDIABETIC REGIMEN: * Levemir 45 units qAM, 15 units qHS * Novolog 38 units with meals + sliding scale * TDD = 174+ units/day * A1c = 8.9 % 02/19/18 Item Value Date Time Bedside Glucose 158 mg/dl H 03/01/18 0945 Bedside Glucose 208 mg/dl H 03/01/18 1438 Bedside Glucose 205 mg/dl H 03/01/18 1516 Bedside Glucose 190 mg/dl H 03/01/18 1720 Bedside Glucose 194 mg/dl H 03/01/182010 Bedside Glucose 98 mg/dl H 03/02/18 0840 Bedside Glucose 69 mg/dl *L 03/02/18 1202 Bedside Glucose 68 mg/dl *L 03/02/18 1204 Bedside Glucose 122 mg/dl H 03/02/18 1223 Bedside Glucose 59 mg/dl *L 03/02/18 1622 Bedside Glucose 53 mg/dl *L 03/02/18 1642 Bedside Glucose 115 mg/dl H 03/02/18 1702 Bedside Glucose 186 mg/dl H 03/02/18 1751 Bedside Glucose 122 mg/dl H 03/02/18 1945 Bedside Glucose 71 mg/dl 03/03/18 0046 Bedside Glucose 79 mg/dl 03/03/18 0129 Bedside Glucose 82 mg/dl 03/03/18 0303 Bedside Glucose 123 mg/dl H 03/03/18 0620 Bedside Glucose 134 mg/dl H 03/03/18 0737 Bedside Glucose 153 mg/dl H 03/03/18 1131 Bedside Glucose 127 mg/dl H 03/03/18 1628 Bedside Glucose 203 mg/dl H 03/03/18 2026 Bedside Glucose 149 mg/dl H 03/04/18 0823 ASSESSMENT: * Pt with sustained HYPOGLYCEMIA 03/02/18 secondary to NPO status and extra Lantus given for steroid induced hyperglycemia from DEXAMETHASONE given in OR and to make up missed dose prior to surgery. * Pt remains on full liquid diet only. BSGs were below goal range 03/03/18 AM therefore morning dose of Lantus held until lunch time. No hypoglycemia since basal insulin doses reduced and dosing per BSG. * Patient is currently receiving ~ 56 units of insulin per day * 40 units of basal insulin * 16 units of prandial/correctional insulin (this is low d/t reduced diet) * Changes needed to insulin regimen: * AM Fasting BSG = 149mg/dl --> this is in goal range for age/co-morbidities/ baseline control of ~9% A1c. Will continue basal insulin dosing as ordered for today, may need to increase if AM fasting BSG continues to trend upwards. * Post-prandial BSGs are in range --> no changes needed to CF/CR PLAN FOR INPATIENT GLYCEMIC CONTROL: No changes needed at this time. Continue reduced outpatient basal insulin dosing based on BSG for full liquid diet. * Basal insulin: no change * Lantus SQ BID --> reduced outpatient dosing for sustained hypoglycemia; dose reduction based on BSG * QAM dosing --> Lantus 20-40 units BSG below 110 mg/dl --> 20 units (~40% outpatient dosing) BSG 110-200 mg/dl --> 30 units (2/3 of outpatient dosing) BSG above 200 mg/dl --> 40 units (~90% of outpatient dosing) * HS dosing --> Lantus 0-10 units BSG below 110 mg/dl --> 0 units (0% outpatient dosing) BSG 110-200 mg/dl --> 5 units (1/3 of outpatient dosing) BSG above 200 mg/dl --> 10 units (2/3 outpatient dosing) * Bolus insulin: no change * NovoLog per scale ACHS or Q6hrs while NPO * Goal Range: Low 110 mg/dL - High 140 mg/dL * Correction Factor: 20 mg/dL/unit * Nutritional / Prandial insulin per carb ratio of 1 unit per 6 grams CHO consumed
[2018-03-04] MEDS: INSULIN ASPART 100 UNITS/ML 3 ML PEN SC SCH ×4 (09:26→20:51)
[2018-03-04] MEDS ORDERED: LISINOPRIL 5 MG TAB PO ONE (09:30)
[2018-03-04 10:11] VITALS: BP 176/83; PULSE 101; TEMP 37; O2SAT 89
[2018-03-04] MEDS: INSULIN DETEMIR FLEXPEN/FLEX TOUCH 100 UNITS/ML 3ML SC SCH ×2 (10:17→20:52)
--- NOTE | 2018-03-04 11:17 | Progress Note ---
Subjective Date of Service: Mar 04, 2018. Subjective Pt evaluation today including: physical exam, chart review, lab review, review of inpatient medication list Pain: could not assess PO Intake: did not eat breakfast Voiding: hall catheter in place during the surgeon's rounds this AM she was lethargic by report at about 0800 the patient refused to take her AM meds she apparently was sleepy/lethargic with eyes closed about 0815 a nursing program chair attempted to wake her up; she had little luck the nursing program chair did a sternal rub on the patient the patient promptly woke up and told the lead assistant manager "get the f--- out of here" a little while later vitals were obtained and the patient opened her eyes and was staring angrily at staff since then she has been sleeping with eyes closed BSG >100 vitals stable except BP elevated unable to obtain any history or ROS during my visit Objective Vital Signs Date Time Temp Pulse Resp B/P (MAP) Pulse Ox O2 Delivery O2 Flow Rate FiO2 03/04/18 10:11 37.0 101 22 176/83 (114) 89 Nasal Cannula 5.0 03/04/18 08:23 Nasal Cannula 4.0 03/04/18 07:36 36.7 92 20 154/84 (107) 92 Nasal Cannula 4.0 03/04/18 03:15 37.1 89 16 164/76 (105) 95 Nasal Cannula 4.0 03/03/18 23:40 37.2 95 16 152/77 (102) 93 Nasal Cannula 4.0 03/03/18 23:40 Room Air 03/03/18 20:35 38.0 97 20 119/64 (82) 92 Nasal Cannula 3.0 03/03/18 19:50 Nasal Cannula 03/03/18 19:20 37.1 93 18 90 3.0 03/03/18 15:28 37.1 93 18 122/51 (74) 90 Nasal Cannula 3.0 03/03/18 11:49 36.6 100 20 116/64 (81) 92 Physical Exam General Appearance: no apparent distress, + obese, + pertinent finding (does not open eyes to commands, sternal rub; when I lift her arms up in the air she slowly raises them back down to the bed (ie - they didn't simply fall)) Eyes: PERRL ENT: + pertinent finding (patient appears to be volitionally keeping her mouth closed; would not open it for me) Neck: no JVD Respiratory/Chest: lungs clear, no respiratory distress, no accessory muscle use, + decreased breath sounds (bases) Cardiovascular: regular rate, rhythm, no gallop, no murmur Abdomen: normal bowel sounds, non tender, soft, no organomegaly, + pertinent finding (dressings intact on abdominal wall ) Extremities: + pertinent finding (b/l BKA; stumps wnl) Neurologic/Psychiatric: + pertinent finding (lethargic; no facial droop; no pronator drift; unable to assess strength but there appears to be no flaccidity) Skin: no rash Laboratory Results Last 24 Hours Test 03/03/18 11:31 03/03/18 16:28 03/03/18 20:26 03/04/18 06:11 Bedside Glucose 153 mg/dl 127 mg/dl 203 mg/dl White Blood Count 7.42 K/uL Red Blood Count 3.31 M/uL Hemoglobin 10.1 g/dL Hematocrit 31.7 % Mean Corpuscular Volume 95.8 fL Mean Corpuscular Hemoglobin 30.5 pg Mean Corpuscular Hemoglobin Concent 31.9 g/dl Platelet Count 181 K/uL Mean Platelet Volume 10.3 fL Neutrophils (%) (Auto) 76.1 % Lymphocytes (%) (Auto) 11.9 % Monocytes (%) (Auto) 8.8 % Eosinophils (%) (Auto) 2.3 % Basophils (%) (Auto) 0.4 % Neutrophils # (Auto) 5.65 K/uL Lymphocytes # (Auto) 0.88 K/uL Monocytes # (Auto) 0.65 K/uL Eosinophils # (Auto) 0.17 K/uL Basophils # (Auto) 0.03 K/uL RDW Standard Deviation 49.2 fL RDW Coefficient of Variation 14.0 % Immature Granulocyte % (Auto) 0.5 % Immature Granulocyte # (Auto) 0.04 K/uL Sodium Level 138 mmol/L Potassium Level 4.6 mmol/L Chloride Level 109 mmol/L Carbon Dioxide Level 24 mmol/L Anion Gap 5.0 mmol/L Blood Urea Nitrogen 11 mg/dl Creatinine 0.92 mg/dl Est Creatinine Clear Calc Drug Dose 59.9 ml/min Estimated GFR () 78.4 Estimated GFR (Non- 67.7 BUN/Creatinine Ratio 12.4 Random Glucose 117 mg/dl Calcium Level 7.9 mg/dl Test 03/04/18 08:23 03/04/18 10:38 03/04/18 10:58 Bedside Glucose 149 mg/dl Assessment and Plan 62 yo female with a h/o schizophrenia, JOSE R, depression, PAD with bilateral BKAs , HTN, DMII, CAD s/p 2 stents, GERD, insomnia, COPD, and morbid obesity with BMI 45 - 1. encephalopathy - uncertain etiology. Check VBG, lactate, and ammonia level now. Check CT head if labs unrevealing. I don't believe this is medication side effect - review of [employer] pump reveals no narcotics most of the night. If all w/u is negative this could be her schizophrenia but other causes need to be ruled out first. FSBS and vitals are otherwise acceptable. 2. Right hemicolectomy 2nd to large ascending colon polyp - POD #3 - management per gen surgery. Path pending. 3. acute kidney injury - resolved. Resume LOLI. 4. hypoxia - likely 2nd to atelectasis. CXR 03/03 without CHF or pneumonia. Cannot rule out obesity-hypoventilation syndrome or COPD contributing. Maintain o2 sats about 90%. Significant other reports chronic, severe snoring. Needs outpatient sleep study. 5. Schizophrenia/JOSE R/Depression - cont outpatient meds; see #1 above. 6. CAD with prior stents - continue asa, statin. No ischemic symptoms but check EKG in light of #1 above. 7. T2DM - pharmacy managing her lantus/novolog; appreciate their assistance. Controlled. 8. COPD - does not appear to be in exacerbation. Continue home inhalers. Checking VBG to r/o CO2 retention this am. 9. GERD - PPI. 10. DVT proph - heparin TID. 11. FEN - diet management per surgery; continue gentle fluids; BMP stable. 12. Glaucoma - continue home eye drops 13. morbid obesity with BMI 45.3 Continued [facility] stay due to: inadequate po fluid intake, inadequate oral pain control, voiding difficulties, ambulation difficulties, multiple IV medications needed, other (altered MS) Discharge planning: uncertain
[2018-03-04] MEDS: PANTOprazole INJ 40 MG in SYRINGE 0 ML IV SCH (11:20)
--- NOTE | 2018-03-04 12:07 | DIAGNOSTIC IMAGING REPORT ---
HEAD WITHOUT CONTRAST (CT) CT DOSE: 884.08 mGy.cm HISTORY: Mental status change altered MS TECHNIQUE: Multiaxial CT images of the head were performed without the use of intravenous contrast. A dose lowering technique was utilized adhering to the principles of ALARA. Comparison: None. Findings: The paranasal sinuses and mastoid air cells are clear. The calvarium and skull base are intact. The ventricles and sulci are within normal limits. There is no mass, hematoma, midline shift, or acute infarct. Impression: No acute intracranial abnormality. The above report was generated using voice recognition software. It may contain grammatical, syntax or spelling errors. Electronically signed by: Snáchez Perez M.D. 03/04/2018 12:05 PM Dictated Date/Time: 03/04/2018 12:04 PM
[2018-03-04 15:21] VITALS: BP 159/85; PULSE 91; TEMP 37.1; O2SAT 97
[2018-03-04] MEDS ORDERED: NURSING VERBAL MED ORDER ONE (17:15)
[2018-03-04 19:30] VITALS: BP 105/64; PULSE 110; TEMP 37.4; O2SAT 90
[2018-03-04] MEDS: TAMSULOSIN HCL 0.4 MG CAP PO SCH (20:55)
[2018-03-04] MEDS: METHENAMINE HIPPURATE 1 GM TAB PO SCH (20:55)
[2018-03-04] MEDS: ATORVASTATIN 40 MG TAB PO SCH (20:55)
[2018-03-04] MEDS: ASPIRIN 81 MG ECTAB PO SCH (20:55)
[2018-03-04] MEDS: CLONAZEPAM 0.5 MG TAB PO SCH (20:59)
[2018-03-04] MEDS: LATANOPROST 0.005% OP SOLN 2.5 ML BTL OPB SCH (21:00)
[2018-03-04 23:10] VITALS: BP 161/76; PULSE 113; TEMP 37.1; O2SAT 91
[2018-03-05] VITALS (9 sets, daily range): BP systolic 85–186; BP diastolic 53–82; PULSE 76–154; TEMP 36.7–38; O2SAT 93–100
[2018-03-05] MEDS ORDERED: ACETAMINOPHEN 325 MG TAB PO STA (03:27)
[2018-03-05] MEDS: HEPARIN SOD 5000 UNIT/0.5 ML CARP SQ SCH ×3 (05:59→21:04)
[2018-03-05 06:34] LABS: HEMATOCRIT 28.5 % (37-47); HEMOGLOBIN 9.3 g/dL (12.0-16.0); MEAN CELL VOLUME 92.8 fL (80-100); MEAN CORPUSCULAR HEMOGLOBIN 30.3 pg (25-34); MEAN CORPUSCULAR HGB CONC 32.6 g/dl (32-36); MEAN PLATELET VOLUME 10.1 fL (7.4-10.4); PLATELET COUNT 222 K/uL (130-400); RED CELL DISTRIBUTION WIDTH CV 13.9 % (11.5-14.5); RED CELL DISTRIBUTION WIDTH SD 47.2 fL (36.4-46.3); WHITE BLOOD COUNT 7.52 K/uL (4.8-10.8)
[2018-03-05 07:03] LABS: CALCIUM 7.7 mg/dl (8.5-10.1); CREATININE 0.97 mg/dl (0.60-1.20); POTASSIUM 4.4 mmol/L (3.5-5.1)
[2018-03-05] MEDS ORDERED: HYDROmorphone INJ 0.5 MG/0.5 ML SYR IV PRN (07:30)
--- NOTE | 2018-03-05 07:34 | Surgery Progress Note ---
Surgery Progress Note Date of Service Mar 05, 2018. Subjective Post OP Day: 4 no c/o, using ASSEMBLER TRIM over 100 attempts in 4 hours Objective Vital Signs: Date Time Temp Pulse Resp B/P (MAP) Pulse Ox O2 Delivery O2 Flow Rate FiO2 03/05/18 06:59 37.5 87 18 186/66 (106) 100 Nasal Cannula 4.0 03/05/18 03:18 38.0 03/05/18 03:15 37.8 118 18 146/69 (94) 93 Nasal Cannula 4.0 03/04/18 23:55 Room Air 03/04/18 23:10 37.1 113 18 161/76 (104) 91 Nasal Cannula 4.0 03/04/18 19:30 37.4 110 18 105/64 (78) 90 Nasal Cannula 4.0 03/04/18 15:40 Nasal Cannula 3.0 03/04/18 15:21 37.1 91 18 159/85 (109) 97 Nasal Cannula 4.0 03/04/18 10:11 37.0 101 22 176/83 (114) 89 Nasal Cannula 5.0 03/04/18 08:23 Nasal Cannula 4.0 03/04/18 07:36 36.7 92 20 154/84 (107) 92 Nasal Cannula 4.0 Physical Exam: urine output (375 cc) Abdomen: non distended, soft Laboratory Results: Results Past 24 Hours Test 03/04/18 08:23 03/04/18 10:58 03/04/18 11:08 03/04/18 12:15 Range/Units Bedside Glucose 149 140 70-90 mg/dl Venous Blood pH 7.35 7.36-7.41 Venous Blood Partial Pressure CO2 44 38.0-50.0 mmHg Venous Blood Partial Pressure O2 34 mmHg Venous Blood HCO3 24 mmol/L Venous Blood Oxygen Saturation 66.3 % Venous Blood Base Excess -1.8 mEq/L Lactic Acid Level 0.5 0.4-2.0 mmol/L Ammonia 23.6 11-32 umol/L Urine Color YELLOW Urine Appearance CLOUDY CLEAR Urine pH 5.0 4.5-7.5 Urine Specific [place] 1.011 1.000-1.030 Urine Protein 2+ NEG Urine Glucose (UA) NEG NEG Urine Ketones 1+ NEG Urine Occult Blood 2+ NEG Urine Nitrite NEG NEG Urine Bilirubin NEG NEG Urine Urobilinogen NEG NEG Urine Leukocyte Esterase NEG NEG Urine WBC (Auto) 1-5 0-5 /hpf Urine RBC (Auto) 0-4 0-4 /hpf Urine Hyaline Casts (Auto) 0-5 /lpf Urine Epithelial Cells (Auto) >30 0-5 /lpf Urine Bacteria (Auto) NEG NEG Urine Pathogenic Casts 0 /lpf Test 03/04/18 16:57 03/04/18 20:31 03/05/18 06:06 Range/Units Bedside Glucose 110 212 70-90 mg/dl White Blood Count 7.52 4.8-10.8 K/uL Red Blood Count 3.07 4.2-5.4 M/uL Hemoglobin 9.3 12.0-16.0 g/dL Hematocrit 28.5 37-47 % Mean Corpuscular Volume 92.8 80-100 fL Mean Corpuscular Hemoglobin 30.3 25-34 pg Mean Corpuscular Hemoglobin Concent 32.6 32-36 g/dl RDW Standard Deviation 47.2 36.4-46.3 fL RDW Coefficient of Variation 13.9 11.5-14.5 % Platelet Count 222 130-400 K/uL Mean Platelet Volume 10.1 7.4-10.4 fL Sodium Level 137 136-145 mmol/L Potassium Level 4.4 3.5-5.1 mmol/L Chloride Level 108 98-107 mmol/L Carbon Dioxide Level 24 21-32 mmol/L Anion Gap 5.0 3-11 mmol/L Blood Urea Nitrogen 8 7-18 mg/dl Creatinine 0.97 0.60-1.20 mg/dl Est Creatinine Clear Calc Drug Dose 56.8 ml/min Estimated GFR () 73.6 Estimated GFR (Non- 63.5 BUN/Creatinine Ratio 8.5 10-20 Random Glucose 112 70-99 mg/dl Calcium Level 7.7 8.5-10.1 mg/dl Microbiology Results 03/04/18 Urine Culture, Received Pending Assessment & Plan s/p right hemicolectomy d/c ASSEMBLER TRIM on full liquids no BM yet seen with Dr. Abraham
[2018-03-05] MEDS: ALPHAGAN~ORDER AWAITING ACTION SCH ×2 (08:00→16:00)
--- NOTE | 2018-03-05 08:50 | DIAGNOSTIC IMAGING REPORT ---
CHEST ONE VIEW PORTABLE HISTORY: low grade fever, ongoing O2 requirement COMPARISON: Chest 03/03/2018. FINDINGS: There are low lung volumes. Progressive interstitial and vascular thickening consistent with moderate pulmonary edema. Small bilateral pleural effusions and right basilar densities persist. The heart remains enlarged. No pneumothorax. Old, healed left-sided rib fractures. IMPRESSION: Moderate pulmonary edema which has progressed. Small bilateral pleural effusions and right basilar densities are again noted. Electronically signed by: Henok Donaldson M.D. 03/05/2018 8:48 AM Dictated Date/Time: 03/05/2018 8:46 AM
[2018-03-05] MEDS ORDERED: LISINOPRIL 5 MG TAB PO SCH (09:00)
[2018-03-05] MEDS: TRAMADOL HCL 50 MG TAB PO PRN ×3 (09:05→21:01)
[2018-03-05] MEDS: PAROXETINE 30 MG TAB PO SCH (09:06)
[2018-03-05] MEDS: DOCUSATE SODIUM 100 MG CAP PO SCH ×2 (09:06→20:51)
[2018-03-05] MEDS: INSULIN ASPART 100 UNITS/ML 3 ML PEN SC SCH ×3 (09:09→21:03)
[2018-03-05] MEDS: INSULIN DETEMIR FLEXPEN/FLEX TOUCH 100 UNITS/ML 3ML SC SCH ×2 (09:10→21:03)
--- NOTE | 2018-03-05 11:07 | Progress Note ---
Subjective Date of Service: Mar 05, 2018. Subjective Pt evaluation today including: conversation w/ patient, physical exam, chart review, lab review, review of studies (cxr - agree w/ radiology - appears to have pulm edema & effusions; atelectasis as well), review of inpatient medication list Pain: minimal abd pain PO Intake: tolerating fulls Voiding: hall catheter in place patient very awake, alert, and talking/answering questions today she denies depressive symptoms, hallucinations (either visual or auditory) denies dyspnea or cough or feeling "ill" no vomiting staff report she has been appropriate all AM when asked what happened yesterday (patient was sleepy, cursing at staff, etc) she said "I don't know" no flatus or stool Review of Systems Respiratory: No cough, No wheezing, No shortness of breath Cardiac: No chest pain Abdomen: No pain, No nausea, No vomiting Objective Vital Signs Date Time Temp Pulse Resp B/P (MAP) Pulse Ox O2 Delivery O2 Flow Rate FiO2 03/05/18 08:10 Nasal Cannula 4.0 03/05/18 06:59 37.5 87 18 186/66 (106) 100 Nasal Cannula 4.0 03/05/18 03:18 38.0 03/05/18 03:15 37.8 118 18 146/69 (94) 93 Nasal Cannula 4.0 03/04/18 23:55 Room Air 03/04/18 23:10 37.1 113 18 161/76 (104) 91 Nasal Cannula 4.0 03/04/18 19:30 37.4 110 18 105/64 (78) 90 Nasal Cannula 4.0 03/04/18 15:40 Nasal Cannula 3.0 03/04/18 15:21 37.1 91 18 159/85 (109) 97 Nasal Cannula 4.0 Physical Exam General Appearance: no apparent distress, + obese ENT: pharynx normal Neck: no JVD Respiratory/Chest: no respiratory distress, no accessory muscle use, + decreased breath sounds (bases), + rales (scant - bases) Cardiovascular: regular rate, rhythm, no gallop, no murmur Abdomen: normal bowel sounds (improved today), non tender, no organomegaly, + distended (mild) Extremities: + pertinent finding (b/l BKA status ) Neurologic/Psychiatric: alert, + depressed affect (very flat, stares at you at times, not responding to internal stimuli) Laboratory Results Last 24 Hours Test 03/04/18 11:08 03/04/18 12:15 03/04/18 16:57 03/04/18 20:31 Urine Color YELLOW Urine Appearance CLOUDY Urine pH 5.0 Urine Specific [place] 1.011 Urine Protein 2+ Urine Glucose (UA) NEG Urine Ketones 1+ Urine Occult Blood 2+ Urine Nitrite NEG Urine Bilirubin NEG Urine Urobilinogen NEG Urine Leukocyte Esterase NEG Urine WBC (Auto) 1-5 /hpf Urine RBC (Auto) 0-4 /hpf Urine Hyaline Casts (Auto) /lpf Urine Epithelial Cells (Auto) >30 /lpf Urine Bacteria (Auto) NEG Urine Pathogenic Casts /lpf Bedside Glucose 140 mg/dl 110 mg/dl 212 mg/dl Test 03/05/18 06:06 03/05/18 07:50 White Blood Count 7.52 K/uL Red Blood Count 3.07 M/uL Hemoglobin 9.3 g/dL Hematocrit 28.5 % Mean Corpuscular Volume 92.8 fL Mean Corpuscular Hemoglobin 30.3 pg Mean Corpuscular Hemoglobin Concent 32.6 g/dl RDW Standard Deviation 47.2 fL RDW Coefficient of Variation 13.9 % Platelet Count 222 K/uL Mean Platelet Volume 10.1 fL Sodium Level 137 mmol/L Potassium Level 4.4 mmol/L Chloride Level 108 mmol/L Carbon Dioxide Level 24 mmol/L Anion Gap 5.0 mmol/L Blood Urea Nitrogen 8 mg/dl Creatinine 0.97 mg/dl Est Creatinine Clear Calc Drug Dose 56.8 ml/min Estimated GFR () 73.6 Estimated GFR (Non- 63.5 BUN/Creatinine Ratio 8.5 Random Glucose 112 mg/dl Calcium Level 7.7 mg/dl Bedside Glucose 105 mg/dl Assessment and Plan 62 yo female with a h/o schizophrenia, JOSE R, depression, PAD with bilateral BKAs , HTN, DMII, CAD s/p 2 stents, GERD, insomnia, COPD, and morbid obesity with BMI 45 - 1. encephalopathy - uncertain etiology but resolved. Extensive w/u yesterday - VBG, other labs, CT head, EKG, repeat u/a, etc -- all neg/normal. This may have been psychiatric in origin given her schizophrenia. She is back to baseline today. 2. Right hemicolectomy 2nd to large ascending colon polyp - POD #4 - management per gen surgery. Path pending. 3. acute kidney injury - resolved. Resumed LOLI. 4. hypoxia - at this point she appears to be in mild CHF, likely acute diastolic CHF. Stop fluids. Lasix 20mg IV x 1. Control her BP better. Consider echo. 5. Schizophrenia/JOSE R/Depression - cont outpatient meds; see #1 above. 6. CAD with prior stents - continue asa, statin. No ischemic symptoms and EKG yesterday was stable. 7. T2DM - pharmacy managing her lantus/novolog; appreciate their assistance. Controlled. 8. COPD - does not appear to be in exacerbation. Continue home inhalers. 9. GERD - PPI. 10. DVT proph - heparin TID. 11. FEN - diet management per surgery; stop fluids in light of #4. BMP/mag in am. 12. Glaucoma - continue home eye drops 13. morbid obesity with BMI 45.3 14. acute blood loss anemia - would recommend FE supplementation once diet is back to normal and GI function has returned. needs PT, OT evals Continued [facility] stay due to: inadequate po fluid intake, inadequate oral pain control, voiding difficulties, ambulation difficulties, multiple IV medications needed, other (altered MS) Discharge planning: uncertain
[2018-03-05] MEDS: PANTOprazole INJ 40 MG in SYRINGE 0 ML IV SCH (11:14)
[2018-03-05] MEDS ORDERED: FUROSEMIDE INJ 20 MG in SYRINGE 0 ML IV SCH (11:45)
[2018-03-05] MEDS ORDERED: METOPROLOL TARTRATE 25 MG TAB PO STA (16:00)
[2018-03-05] MEDS ORDERED: METOPROLOL TARTRATE 1 MG/ML VIAL IV STA (17:05)
[2018-03-05 17:58] LABS: POTASSIUM 4.2 mmol/L (3.5-5.1)
[2018-03-05] MEDS ORDERED: NURSING VERBAL MED ORDER ONE (18:15)
[2018-03-05] MEDS ORDERED: MAGNESIUM SULFATE 1GM / D5W 100 ML IV STA (18:24)
--- NOTE | 2018-03-05 18:25 | Progress Note ---
Progress Note Date of Service Mar 05, 2018. Progress Note time - 1800 Called by nursing staff that during the early afternoon vitals the patient was noted to have a rapid HR in the 150s. I requested a STAT EKG - this showed a. fib with RVR. She has inferior ST segment depressions but these are chronic. I visited the patient and she was awake & alert. Denied dyspnea, chest pain or palpitations. Significant other was at bedside - he confirmed that she has numerous episodes at the [facility] where she will be very lethargic and sleepy and staff cannot wake her (similar to yesterday). Exam - gen - NAD, no change from prior exam neck - no obvious JVD heart - irregular, tachy lungs - CTA b/l I ordered metoprolol 25mg po x 1 while awaiting her transfer to the telemetry unit. Upon transfer to 2nd floor the patient's HR, despite the metoprolol, was still 130s/140s. I ordered 2.5mg of lopressor IV x 1 again without any appreciable effect on HR. BPs 80s and 90s systolic - asymptomatic. Will order cardizem infusion at low rate to start (2.5mg/hr). K and mag both normal. Troponin mildly elevated at 0.7- this is likely myocardial demand ischemia in setting of rapid a. fib; doubt ACS given her lack of ischemic symptoms. Significant other reports she just had a stress test last week and echo - I don' t have those results. Will attempt to retrieve them in [employer]. time - 45 minutes. total time today over 2 separate visits - about 70 minutes. I left a message for Dr. Abraham informing him of pt's transfer to tele unit. Mao Pinto MD
[2018-03-05] MEDS ORDERED: DILTIAZEM HCL INJ 125 MG in DEXTROSE 5% 100ML IV PRN (18:30)
[2018-03-05] MEDS ORDERED: AMIODARONE IV BOLUS / DRIP IV STA (19:17)
[2018-03-05] MEDS ORDERED: AMIODARONE / D5W 200 ML IV SCH (19:30)
[2018-03-05] MEDS: LATANOPROST 0.005% OP SOLN 2.5 ML BTL OPB SCH (20:51)
[2018-03-05] MEDS: CLONAZEPAM 0.5 MG TAB PO SCH (20:56)
[2018-03-05] MEDS: METHENAMINE HIPPURATE 1 GM TAB PO SCH (20:57)
[2018-03-05] MEDS: ASPIRIN 81 MG ECTAB PO SCH (20:57)
[2018-03-05] MEDS: ATORVASTATIN 40 MG TAB PO SCH (20:57)
[2018-03-05] MEDS: TAMSULOSIN HCL 0.4 MG CAP PO SCH (20:57)
[2018-03-06] MEDS ORDERED: AMIODARONE / D5W 200 ML IV SCH (01:30)
[2018-03-06] MEDS: TRAMADOL HCL 50 MG TAB PO PRN ×2 (01:45→08:46)
[2018-03-06 04:30] VITALS: BP 125/73; PULSE 82; TEMP 37.1; O2SAT 98
[2018-03-06 05:19] LABS: CALCIUM 8.2 mg/dl (8.5-10.1); CREATININE 1.12 mg/dl (0.60-1.20); POTASSIUM 3.9 mmol/L (3.5-5.1)
[2018-03-06] MEDS: HEPARIN SOD 5000 UNIT/0.5 ML CARP SQ SCH ×3 (06:22→20:43)
[2018-03-06 07:15] VITALS: BP 138/81; PULSE 77; TEMP 37.1; O2SAT 97
[2018-03-06] MEDS: ALPHAGAN~ORDER AWAITING ACTION SCH ×3 (07:31→16:00)
[2018-03-06] MEDS: INSULIN ASPART 100 UNITS/ML 3 ML PEN SC SCH ×4 (08:36→20:41)
[2018-03-06] MEDS: INSULIN DETEMIR FLEXPEN/FLEX TOUCH 100 UNITS/ML 3ML SC SCH ×2 (08:36→20:42)
[2018-03-06] MEDS: DOCUSATE SODIUM 100 MG CAP PO SCH ×2 (08:38→20:38)
[2018-03-06] MEDS: PAROXETINE 30 MG TAB PO SCH (08:39)
[2018-03-06] MEDS ORDERED: FUROSEMIDE INJ 20 MG in SYRINGE 0 ML IV SCH (09:00)
[2018-03-06] MEDS ORDERED: POTASSIUM CHLORIDE 20 MEQ TABCR PO ONE (09:00)
[2018-03-06] MEDS: PANTOprazole INJ 40 MG in SYRINGE 0 ML IV SCH (10:08)
[2018-03-06] MEDS: METOPROLOL TARTRATE 25 MG TAB PO SCH ×2 (10:08→20:38)
--- NOTE | 2018-03-06 10:42 | Surgery Progress Note ---
Surgery Progress Note Date of Service Mar 06, 2018. Subjective Post OP Day: 5 Patient transferred to [facility] after vitals revealed HR in 150s- stat EKG showed A.Fib. Patient more talkative today- still one or two word answers to questions. Initially stated that she was having abdominal pain, but later in conversation denied any pain. Patient's [employer] D/C- now taking Tramadol, Dilaudid also on board PRN. Objective Vital Signs: Date Time Temp Pulse Resp B/P (MAP) Pulse Ox O2 Delivery O2 Flow Rate FiO2 03/06/18 08:00 Nasal Cannula 4.0 03/06/18 07:15 37.1 77 20 138/81 (100) 97 Nasal Cannula 4.0 03/06/18 04:30 37.1 82 18 125/73 (90) 98 Nasal Cannula 4.0 03/05/18 23:59 Nasal Cannula 4.0 03/05/18 23:26 37.2 76 18 111/67 (82) 95 Nasal Cannula 4.0 03/05/18 19:56 Nasal Cannula 4.0 03/05/18 19:45 37.1 83 20 107/53 (71) 96 Nasal Cannula 4.0 03/05/18 18:00 37.0 130 18 85/59 (68) 97 Nasal Cannula 4.0 03/05/18 17:30 145 98/66 03/05/18 16:55 36.9 95 20 98/66 (77) 94 Nasal Cannula 4.0 03/05/18 16:05 Nasal Cannula 03/05/18 14:56 123/82 (96) 03/05/18 14:51 36.7 154 20 89/70 (76) 97 Nasal Cannula 4.0 Abdomen: soft, + distended (mild distention), + pertinent finding (mya in place. ) Incision(s): findings (Dressing removed and incision cleaned, mild erythema at staple insertions, incision clean, dry and intact. New dressing placed. ) Laboratory Results: Results Past 24 Hours Test 03/05/18 12:01 03/05/18 16:52 03/05/18 17:00 03/05/18 20:23 Range/Units Bedside Glucose 124 120 231 70-90 mg/dl Potassium Level 4.2 3.5-5.1 mmol/L Magnesium Level 1.8 1.8-2.4 mg/dl Troponin I 0.754 0-0.045 ng/ml Thyroid Stimulating Hormone (TSH) 0.576 0.300-4.500 uIu/ml Test 03/05/18 22:45 03/06/18 04:46 03/06/18 07:13 Range/Units Troponin I 1.710 1.750 0-0.045 ng/ml Hemoglobin 9.9 12.0-16.0 g/dL Sodium Level 138 136-145 mmol/L Potassium Level 3.9 3.5-5.1 mmol/L Chloride Level 106 98-107 mmol/L Carbon Dioxide Level 26 21-32 mmol/L Anion Gap 6.0 3-11 mmol/L Blood Urea Nitrogen 9 7-18 mg/dl Creatinine 1.12 0.60-1.20 mg/dl Est Creatinine Clear Calc Drug Dose 49.2 ml/min Estimated GFR () 61.8 Estimated GFR (Non- 53.4 BUN/Creatinine Ratio 7.9 10-20 Random Glucose 83 70-99 mg/dl Calcium Level 8.2 8.5-10.1 mg/dl Magnesium Level 2.0 1.8-2.4 mg/dl Bedside Glucose 89 70-90 mg/dl Assessment & Plan POD #5 Patient more talkative today- pain controlled. Tolerating full liquid diet without nausea or vomiting. Will continue full liquid diet until return of bowel function.
[2018-03-06 11:00] VITALS: BP 142/78; PULSE 79; TEMP 36.8; O2SAT 97
--- NOTE | 2018-03-06 13:25 | Pharmacy Progress Note ---
Pharmacy Glycemic Short Note 2 Date of Service Mar 06, 2018. OUTPATIENT ANTIDIABETIC REGIMEN: * Levemir 45 units qAM, 15 units qHS * Novolog 38 units with meals + sliding scale * TDD = 174+ units/day * A1c = 8.9 % 02/19/18 ASSESSMENT: * Pt remains on full liquid diet only. * Patient is currently receiving ~ 50 units of insulin per day * 30 units of basal insulin * ~20 units of prandial/correctional insulin (this is low d/t reduced diet) * Changes needed to insulin regimen: * AM Fasting BSG = 89 mg/dl --> Will continue to dose basal insulin according to BSGs. * Post-prandial BSGs have been above goal range in the afternoon/evening --> will tighten carb ratio slightly PLAN FOR INPATIENT GLYCEMIC CONTROL: * Basal insulin: no change * Lantus SQ BID --> reduced outpatient dosing for sustained hypoglycemia/ reduced diet * QAM dosing --> Lantus 20-40 units BSG below 110 mg/dl --> 20 units (~40% outpatient dosing) BSG 110-200 mg/dl --> 30 units (2/3 of outpatient dosing) BSG above 200 mg/dl --> 40 units (~90% of outpatient dosing) * HS dosing --> Lantus 0-10 units BSG below 110 mg/dl --> 0 units (0% outpatient dosing) BSG 110-200 mg/dl --> 5 units (1/3 of outpatient dosing) BSG above 200 mg/dl --> 10 units (2/3 outpatient dosing) * Bolus insulin: * NovoLog per scale ACHS or Q6hrs while NPO * Goal Range: Low 110 mg/dL - High 140 mg/dL * Correction Factor: 20 mg/dL/unit * Nutritional / Prandial insulin per carb ratio of 1 unit per 5 grams CHO consumed
[2018-03-06 15:29] VITALS: BP 140/51; PULSE 78; TEMP 36.8; O2SAT 91
[2018-03-06 19:10] VITALS: BP 140/79; PULSE 81; TEMP 36.8; O2SAT 94
--- NOTE | 2018-03-06 20:16 | Progress Note ---
Subjective Date of Service: Mar 06, 2018. Subjective Pt evaluation today including: conversation w/ patient, physical exam, chart review, lab review, review of inpatient medication list Pain: mild abd pain PO Intake: tolerating liquids Voiding: hall catheter in place pt converted to NSR from rapid a. fib last pm about 1900 and remained in NSR for rest of night she feels well denies dyspnea denies any other new complaints Review of Systems Constitutional: No fever Respiratory: No cough, No shortness of breath Cardiac: No chest pain Abdomen: + pain, No nausea, No vomiting Objective Vital Signs Date Time Temp Pulse Resp B/P (MAP) Pulse Ox O2 Delivery O2 Flow Rate FiO2 03/06/18 19:10 36.8 81 20 140/79 (99) 94 Room Air 03/06/18 16:00 Nasal Cannula 4.0 03/06/18 15:29 36.8 78 18 140/51 (80) 91 Room Air 03/06/18 11:00 36.8 79 20 142/78 (99) 97 Nasal Cannula 4.0 03/06/18 08:00 Nasal Cannula 4.0 03/06/18 07:15 37.1 77 20 138/81 (100) 97 Nasal Cannula 4.0 03/06/18 04:30 37.1 82 18 125/73 (90) 98 Nasal Cannula 4.0 03/05/18 23:59 Nasal Cannula 4.0 03/05/18 23:26 37.2 76 18 111/67 (82) 95 Nasal Cannula 4.0 03/05/18 19:56 Nasal Cannula 4.0 Physical Exam General Appearance: no apparent distress, + obese ENT: pharynx normal Neck: no JVD Respiratory/Chest: lungs clear, no respiratory distress, no accessory muscle use Cardiovascular: regular rate, rhythm, no gallop, no murmur Abdomen: normal bowel sounds, non tender, no organomegaly, + distended (mild) Extremities: + pertinent finding (right BKA, left AKA) Neurologic/Psychiatric: alert Skin: + pertinent finding (incision midline of abdomen clean) Laboratory Results Last 24 Hours Test 03/05/18 20:23 03/05/18 22:45 03/06/18 04:46 03/06/18 07:13 Bedside Glucose 231 mg/dl 89 mg/dl Troponin I 1.710 ng/ml 1.750 ng/ml Hemoglobin 9.9 g/dL Sodium Level 138 mmol/L Potassium Level 3.9 mmol/L Chloride Level 106 mmol/L Carbon Dioxide Level 26 mmol/L Anion Gap 6.0 mmol/L Blood Urea Nitrogen 9 mg/dl Creatinine 1.12 mg/dl Est Creatinine Clear Calc Drug Dose 49.2 ml/min Estimated GFR () 61.8 Estimated GFR (Non- 53.4 BUN/Creatinine Ratio 7.9 Random Glucose 83 mg/dl Calcium Level 8.2 mg/dl Magnesium Level 2.0 mg/dl Test 03/06/18 10:54 03/06/18 16:13 Bedside Glucose 170 mg/dl 113 mg/dl Assessment and Plan 62 yo female with a h/o schizophrenia, JOSE R, depression, PAD with bilateral BKAs , HTN, DMII, CAD s/p 2 stents, GERD, insomnia, COPD, and morbid obesity with BMI 45 - 1. encephalopathy - resolved. Extensive w/u including VBG, other labs, CT head , EKG, repeat u/a, etc -- all neg/normal. This was likely psychiatric in origin given her schizophrenia. She is doing well in this regard. Significant other reports she has episodes like this at SNF and these have been present for some time. No h/o seizures. 2. Right hemicolectomy 2nd to large ascending colon polyp - POD #5 - management per gen surgery. 3. acute kidney injury - resolved. Resumed LOLI. 4. acute diastolic CHF - improving & diuresing well. Give another dose of IV lasix today. Beta emma added. Echo 1 week ago as outpatient with EF 55% and normal valve function. 5. Schizophrenia/JOSE R/Depression - cont outpatient meds; see #1 above. 6. CAD with prior stents - continue asa, statin. No ischemic symptoms and EKG without ST changes. 7. T2DM - pharmacy managing her lantus/novolog; appreciate their assistance. Controlled. 8. COPD - does not appear to be in exacerbation. Continue home inhalers. 9. GERD - PPI. 10. DVT proph - heparin TID. 11. FEN - diet management per surgery; BMP stable. 12. Glaucoma - continue home eye drops 13. morbid obesity with BMI 47 14. acute blood loss anemia - would recommend FE supplementation once diet is back to normal and GI function has returned. 15. PAF - resolved, converted to NSR yesterday night. This likely occurred as a result of perioperative stress and acute CHF. CHADS is at least a 2. Consider anticoagulation after this hospitalization. Leave on metoprolol 25mg BID. TSH noted to be normal. 16. positive troponin - she never had chest pain or other ischemic symptoms. EKG never showed any new ST segment changes. This was likely myocardial demand ischemia in setting of PAF and acute diastolic CHF. Repeat trop in am. will continue to follow would keep patient on tele another 24 hours to ensure no a. fib Continued [facility] stay due to: inadequate po fluid intake, inadequate oral pain control, voiding difficulties, ambulation difficulties, multiple IV medications needed Discharge planning: assisted facility
[2018-03-06] MEDS: LATANOPROST 0.005% OP SOLN 2.5 ML BTL OPB SCH (20:38)
[2018-03-06] MEDS: METHENAMINE HIPPURATE 1 GM TAB PO SCH (20:38)
[2018-03-06] MEDS: ATORVASTATIN 40 MG TAB PO SCH (20:39)
[2018-03-06] MEDS: TAMSULOSIN HCL 0.4 MG CAP PO SCH (20:39)
[2018-03-06] MEDS: ASPIRIN 81 MG ECTAB PO SCH (20:39)
[2018-03-06] MEDS: CLONAZEPAM 0.5 MG TAB PO SCH (20:57)
[2018-03-07] VITALS (7 sets, daily range): BP systolic 99–137; BP diastolic 63–81; PULSE 71–87; TEMP 36.6–37.4; O2SAT 91–95
[2018-03-07] MEDS: HEPARIN SOD 5000 UNIT/0.5 ML CARP SQ SCH ×3 (06:07→20:58)
--- NOTE | 2018-03-07 06:40 | Surgery Progress Note ---
Surgery Progress Note Date of Service Mar 07, 2018. Subjective Post OP Day: 6 + pain controlled, + diet (Tolerating full liquids), No complaints, No bowel movement, No flatus, No nausea, No vomiting Patient not very talkative this AM but no less than usual. Patient denies any bowel function at this time. Starks in place Objective Vital Signs: Date Time Temp Pulse Resp B/P (MAP) Pulse Ox O2 Delivery O2 Flow Rate FiO2 03/07/18 03:08 37.3 72 18 134/78 (96) 91 Room Air 03/07/18 00:22 37.0 79 18 132/68 (89) 91 Room Air 03/06/18 23:59 Nasal Cannula 4.0 03/06/18 19:10 36.8 81 20 140/79 (99) 94 Room Air 03/06/18 16:00 Nasal Cannula 4.0 03/06/18 15:29 36.8 78 18 140/51 (80) 91 Room Air 03/06/18 11:00 36.8 79 20 142/78 (99) 97 Nasal Cannula 4.0 03/06/18 08:00 Nasal Cannula 4.0 03/06/18 07:15 37.1 77 20 138/81 (100) 97 Nasal Cannula 4.0 General Appearance: no apparent distress Head: atraumatic Respiratory/Chest: no respiratory distress Abdomen: non distended, soft Incision(s): clean, dry, intact, no drainage, erythema (mild, likely due to mya) Laboratory Results: Results Past 24 Hours Test 03/06/18 07:13 03/06/18 10:54 03/06/18 16:13 03/06/18 20:21 Range/Units Bedside Glucose 89 170 113 171 70-90 mg/dl Test 03/07/18 04:44 Range/Units Assessment & Plan POD #6 s/p laparoscopic-assisted right colon resection along with the hepatic flexure and partially transverse colon. Patient still not particularly talkative. Pain controlled. Abdomen soft, non-distended. Incisions c/d/i. Starks in place. No bowel fx per patient. Continue current management. Awaiting bowel fx.
[2018-03-07 07:05] LABS: HEMATOCRIT 30.6 % (37-47); MEAN CELL VOLUME 91.9 fL (80-100); MEAN CORPUSCULAR HGB CONC 32.7 g/dl (32-36); MEAN PLATELET VOLUME 9.8 fL (7.4-10.4); PLATELET COUNT 247 K/uL (130-400); RED CELL DISTRIBUTION WIDTH SD 46.6 fL (36.4-46.3); WHITE BLOOD COUNT 5.66 K/uL (4.8-10.8)
[2018-03-07] MEDS: ALPHAGAN~ORDER AWAITING ACTION SCH ×4 (07:21→23:03)
[2018-03-07 07:43] LABS: CALCIUM 8.9 mg/dl (8.5-10.1); CREATININE 0.9 mg/dl (0.60-1.20); POTASSIUM 3.9 mmol/L (3.5-5.1)
[2018-03-07] MEDS: INSULIN DETEMIR FLEXPEN/FLEX TOUCH 100 UNITS/ML 3ML SC SCH ×2 (08:10→21:36)
[2018-03-07] MEDS: INSULIN ASPART 100 UNITS/ML 3 ML PEN SC SCH ×4 (08:10→20:57)
[2018-03-07] MEDS ORDERED: BISACODYL 10 MG SUPP PR ONE (08:15)
[2018-03-07] MEDS ORDERED: BISACODYL 10 MG SUPP PR SCH (08:15)
[2018-03-07] MEDS ORDERED: FUROSEMIDE INJ 20 MG in SYRINGE 0 ML IV ONE (08:45)
[2018-03-07] MEDS: PAROXETINE 30 MG TAB PO SCH (09:00)
[2018-03-07] MEDS: DOCUSATE SODIUM 100 MG CAP PO SCH ×2 (09:00→20:54)
[2018-03-07] MEDS: METOPROLOL TARTRATE 25 MG TAB PO SCH ×2 (09:00→20:54)
[2018-03-07] MEDS: PANTOprazole INJ 40 MG in SYRINGE 0 ML IV SCH (10:37)
[2018-03-07] MEDS: POTASSIUM CHLORIDE 20 MEQ TABCR PO SCH (13:34)
[2018-03-07] MEDS: MAGNESIUM OXIDE 400 MG TAB PO SCH ×2 (13:34→20:54)
--- NOTE | 2018-03-07 18:16 | Progress Note ---
Subjective Date of Service: Mar 07, 2018. Subjective Pt evaluation today including: conversation w/ patient, conversation w/ family (significant other at bedside), physical exam, chart review, lab review, conversation w/ corporate health consultant (gen surgery), review of inpatient medication list Pain: denies any during the visit PO Intake: tolerating the diet Voiding: hall catheter in place tele - no a. kalie overnight pt w/o complaints during the visit she had very large bowel movement with use of suppository per staff still requiring O2 Review of Systems Constitutional: No fever, No chills Respiratory: No cough, No shortness of breath Cardiac: No chest pain, No orthopnea Abdomen: No pain, No nausea, No vomiting Objective Vital Signs Date Time Temp Pulse Resp B/P (MAP) Pulse Ox O2 Delivery O2 Flow Rate FiO2 03/07/18 16:00 Nasal Cannula 2.0 03/07/18 14:45 37.0 81 20 110/68 (82) 94 Nasal Cannula 2.0 03/07/18 10:56 36.6 73 20 133/75 (94) 95 Nasal Cannula 2.0 03/07/18 08:00 Nasal Cannula 2.0 03/07/18 06:49 37.1 73 18 137/81 (99) 92 Room Air 03/07/18 03:08 37.3 72 18 134/78 (96) 91 Room Air 03/07/18 00:22 37.0 79 18 132/68 (89) 91 Room Air 03/06/18 23:59 Nasal Cannula 4.0 03/06/18 19:10 36.8 81 20 140/79 (99) 94 Room Air Physical Exam General Appearance: no apparent distress, + obese ENT: pharynx normal Neck: no JVD Respiratory/Chest: lungs clear, no respiratory distress, no accessory muscle use Cardiovascular: regular rate, rhythm, no gallop, no murmur Abdomen: normal bowel sounds, non tender, soft, no organomegaly Extremities: + pertinent finding (right BKA; left AKA) Neurologic/Psychiatric: alert, + depressed affect (very, very flat - this is baseline for her) Skin: + pertinent finding (abdmominal incision clean; mya intact) Laboratory Results Last 24 Hours Test 03/06/18 20:21 03/07/18 06:41 03/07/18 07:24 03/07/18 10:53 Bedside Glucose 171 mg/dl 122 mg/dl 79 mg/dl White Blood Count 5.66 K/uL Red Blood Count 3.33 M/uL Hemoglobin 10.0 g/dL Hematocrit 30.6 % Mean Corpuscular Volume 91.9 fL Mean Corpuscular Hemoglobin 30.0 pg Mean Corpuscular Hemoglobin Concent 32.7 g/dl RDW Standard Deviation 46.6 fL RDW Coefficient of Variation 14.0 % Platelet Count 247 K/uL Mean Platelet Volume 9.8 fL Sodium Level 140 mmol/L Potassium Level 3.9 mmol/L Chloride Level 106 mmol/L Carbon Dioxide Level 27 mmol/L Anion Gap 7.0 mmol/L Blood Urea Nitrogen 8 mg/dl Creatinine 0.90 mg/dl Est Creatinine Clear Calc Drug Dose 62.7 ml/min Estimated GFR () 80.5 Estimated GFR (Non- 69.5 BUN/Creatinine Ratio 8.5 Random Glucose 100 mg/dl Calcium Level 8.9 mg/dl Magnesium Level 1.7 mg/dl Troponin I 0.769 ng/ml Test 03/07/18 16:18 Bedside Glucose 199 mg/dl Assessment and Plan 62 yo female with a h/o schizophrenia, JOSE R, depression, PAD with bilateral BKAs , HTN, DMII, CAD s/p 2 stents, GERD, insomnia, COPD, and morbid obesity with BMI 45 - 1. encephalopathy - resolved. Extensive w/u including VBG, other labs, CT head , EKG, repeat u/a, urine cx, etc -- all neg/normal this admission. This was likely psychiatric in origin given her schizophrenia. She is doing well in this regard. Significant other reports she has episodes like this at SNF and these have been present for some time. No h/o seizures. No seizure activity seen here at [facility]. 2. Right hemicolectomy 2nd to large ascending colon polyp - POD #6 - management per gen surgery. 3. acute kidney injury - resolved. Resumed LOLI. 4. acute diastolic CHF - improving & diuresing well. Give another dose of IV lasix today. Echo 1 week ago as outpatient with EF 55% and normal valve function. 5. Schizophrenia/JOSE R/Depression - cont outpatient meds; see #1 above. 6. CAD with prior stents - continue asa, statin. No ischemic symptoms and EKG without ST changes. Troponin elevation was in the setting of rapid a. fib. Doubt ACS. 7. T2DM - pharmacy managing her lantus/novolog; appreciate their assistance. Controlled. 8. COPD - no exacerbation at this time; continue home inhalers. 9. GERD - PPI. 10. DVT proph - heparin TID. 11. FEN - diet management per surgery; BMP stable. Replace low mag. 12. Glaucoma - continue home eye drops 13. morbid obesity with BMI 47 14. acute blood loss anemia - would recommend FE supplementation once diet is back to normal and GI function has returned. 15. PAF - resolved, converted to NSR 2 days ago and has remained in NSR since. This likely occurred as a result of perioperative stress and acute CHF. CHADS is at least a 3. Leave on metoprolol 25mg BID. TSH noted to be normal. Lengthy discussion held with patient and her significant other. Discussed options for anticoagulation. They are going to discuss and let us know tomorrow. Ok with Dr. Abraham to initiate anticoagulation if patient desires to start such. I reviewed the stroke risk with patient/significant other w/ a. fib. 16. positive troponin - she never had chest pain or other ischemic symptoms. EKG never showed any new ST segment changes. This was likely myocardial demand ischemia in setting of PAF and acute diastolic CHF. Repeat trop improved today. 17. hypomagnesemia - replace. will continue to follow would keep patient on tele another 24 hours to ensure no a. fib labs in am Continued [facility] stay due to: inadequate po fluid intake, voiding difficulties, multiple IV medications needed Discharge planning: longterm facility
[2018-03-07] MEDS: CLONAZEPAM 0.5 MG TAB PO SCH (20:54)
[2018-03-07] MEDS: ASPIRIN 81 MG ECTAB PO SCH (20:54)
[2018-03-07] MEDS: TAMSULOSIN HCL 0.4 MG CAP PO SCH (20:54)
[2018-03-07] MEDS: METHENAMINE HIPPURATE 1 GM TAB PO SCH (20:54)
[2018-03-07] MEDS: ATORVASTATIN 40 MG TAB PO SCH (20:54)
[2018-03-07] MEDS: LATANOPROST 0.005% OP SOLN 2.5 ML BTL OPB SCH (20:55)
[2018-03-08 03:30] VITALS: BP 107/67; PULSE 72; TEMP 37.4; O2SAT 91
[2018-03-08] MEDS: HEPARIN SOD 5000 UNIT/0.5 ML CARP SQ SCH ×2 (05:34→12:33)
[2018-03-08] MEDS: INSULIN ASPART 100 UNITS/ML 3 ML PEN SC SCH ×3 (07:00→17:40)
[2018-03-08 07:06] VITALS: BP 84/69; PULSE 68; TEMP 36.5; O2SAT 98
[2018-03-08 07:16] LABS: CALCIUM 8.3 mg/dl (8.5-10.1); CREATININE 1.09 mg/dl (0.60-1.20); POTASSIUM 4.4 mmol/L (3.5-5.1)
--- NOTE | 2018-03-08 07:25 | SURGERY PROGRESS NOTE ---
DATE: 03/08/2018 SUBJECTIVE: Esther is 1 week postop a right hemicolectomy for a polyp in the cecum that showed high grade dysplasia but no malignancy on the final path. The patient this morning is pretty much nonresponsive, and this is one of her periods where she is just withdrawn, and in the next day, she will be right awake and responding appropriately. I had ordered a KUB of her abdomen to figure out the gas pattern since it is hard to really evaluate her clinically, but the nurses this morning after I wrote the orders said that she had multiple bowel movements during the night. Therefore, we will cancel that. OBJECTIVE: Her last vitals showed a temperature of 37.4, pulse 72, respirations 18, blood pressure 107/67, and O2 saturation is 91% on 2 L. LABORATORY DATA: Yesterday, her hemoglobin is stable at about 10. Renal function showed a BUN of 8, creatinine 0.90. At this point, from my point of view, the patient could be discharged back to the long term, but I would leave it up to the medical service as they are trying to work with her new onset of atrial fibrillation and therapy. From my point of view, she could be adequately anticoagulated with the whatever needs they feel comfortable.
[2018-03-08] MEDS: ALPHAGAN~ORDER AWAITING ACTION SCH ×2 (08:00→16:00)
[2018-03-08 08:06] VITALS: BP 141/81
[2018-03-08] MEDS: INSULIN DETEMIR FLEXPEN/FLEX TOUCH 100 UNITS/ML 3ML SC SCH (08:14)
[2018-03-08] MEDS ORDERED: FUROSEMIDE INJ 20 MG in SYRINGE 0 ML IV ONE (08:30)
[2018-03-08] MEDS: POTASSIUM CHLORIDE 20 MEQ TABCR PO SCH (09:00)
[2018-03-08] MEDS: MAGNESIUM OXIDE 400 MG TAB PO SCH (09:00)
[2018-03-08] MEDS: METOPROLOL TARTRATE 25 MG TAB PO SCH (09:00)
[2018-03-08] MEDS ORDERED: PANTOprazole SOD 40 MG TAB PO SCH (09:00)
[2018-03-08] MEDS: PAROXETINE 30 MG TAB PO SCH (09:00)
[2018-03-08] MEDS: DOCUSATE SODIUM 100 MG CAP PO SCH (09:00)
[2018-03-08 11:19] VITALS: BP 136/76; PULSE 66; TEMP 36.8; O2SAT 95
[2018-03-08] MEDS ORDERED: APIXABAN 5 MG TAB PO ONE (13:04)
--- NOTE | 2018-03-08 14:16 | Pharmacy Progress Note ---
Pharmacy Glycemic Short Note 2 Date of Service Mar 08, 2018. OUTPATIENT ANTIDIABETIC REGIMEN: * Levemir 45 units qAM, 15 units qHS * Novolog 38 units with meals + sliding scale * TDD = 174+ units/day * A1c = 8.9 % 02/19/18 ASSESSMENT: * Pt remains on full liquid diet only. * Patient is currently receiving ~ 50 units of insulin per day, which has been reasonably well-distributed between basal/bolus (especially beause patient's oral intake has been relatively low) * Changes needed to insulin regimen: * AM Fasting BSG = 133 mg/dl --> Will continue to dose basal insulin according to BSGs. * Patient ate a large lunch (89gm CHO), so she received a large dose of Novolog this afternoon. Carb ratio loosened slightly afterward, as this may be slightly too much prandial coverage. Will continue to adjust if needed. PLAN FOR INPATIENT GLYCEMIC CONTROL: * Basal insulin: no change * Lantus SQ BID --> reduced outpatient dosing for sustained hypoglycemia/ reduced diet * QAM dosing --> Lantus 20-40 units BSG below 110 mg/dl --> 20 units (~40% outpatient dosing) BSG 110-200 mg/dl --> 30 units (2/3 of outpatient dosing) BSG above 200 mg/dl --> 40 units (~90% of outpatient dosing) * HS dosing --> Lantus 0-10 units BSG below 110 mg/dl --> 0 units (0% outpatient dosing) BSG 110-200 mg/dl --> 5 units (1/3 of outpatient dosing) BSG above 200 mg/dl --> 10 units (2/3 outpatient dosing) * Bolus insulin: * NovoLog per scale ACHS or Q6hrs while NPO * Goal Range: Low 110 mg/dL - High 140 mg/dL * Correction Factor: 20 mg/dL/unit * Nutritional / Prandial insulin per carb ratio of 1 unit per 6 grams CHO consumed
[2018-03-08 14:40] VITALS: BP 114/2; PULSE 77; TEMP 37.1; O2SAT 82; O2SAT 92
--- NOTE | 2018-03-08 15:03 | Discharge Instructions ---
Discharge Instructions Date of Service Mar 08, 2018. Admission Reason for Admission: Colon Polyps Discharge Discharge Diagnosis / Problem: Colon Polyps Discharge Goals Goal(s): Decrease discomfort, Improve function Activity Recommendations Activity Limitations: as noted below Lifting Limitations: gradually increase as tolerated Exercise/Sports Limitations: gradually increase as tolerated May Resume Sexual Activity: when tolerated Shower/Bathe: no limitations . Instructions / Follow-Up Instructions / Follow-Up Please follow-up with Dr. Abraham in the General Surgery Clinic in 1 week. Please call the clinic at [phone] to make this appointment. Please call the clinic with any questions or concerns. 1. Please follow-up with [facility] within 5-7 days; CHF clinic would be acceptable. Diagnosis - recent paroxysmal a. fib, acute/chronic diastolic CHF. 2. Check weights EVERY MORNING. Inform ophthalmic medical technologist of any weight gain of more than 2-3 pounds in 1-2 days. 3. Check fingerstick blood sugars every meal and at bedtime (AC/HS). 4. CBC, BMP, Magnesium level in 5 days - results to ophthalmic medical technologist please. 5. Oxygen - 2 liters via nasal cannula - CONTINUOUS. 6. Congestive heart failure instructions - Call 911 and go to the Emergency Room if: * You have tightness or pain in your chest that does not go away with rest or Nitroglycerin * You are very short of breath even with rest Call your doctor if any of the following symptoms or problems start or get worse: * Shortness of breath or difficulty breathing * Wake up at night short of breath * Chest pain * Cough * Swelling of your hands, fee, or legs * More fatigued or tired with your normal activity * Palpitations - sudden fast heart beats WEIGHT * Weigh yourself every morning after using the bathroom. * Use the same scale. * Wear the same amount of clothing. * Write your weight down on your chart. * Call your doctor if you gain more than 2-3 pounds in 1-2 days. MEDICATIONS * Use this discharge instruction sheet for instructions. * Take your medications at the time your doctor ordered. * Do not skip a dose of your medicines. * If you miss a dose of medicine, take as soon as possible, but DO NOT DOUBLE A DOSE. * Read your medicine information when you get home. * Know all of the side effects of your medicine. * Call your doctor's office if you have any side effects. * Be sure all of your doctors know what medicine and herbs you take (including cold, flu, and herbal medicine). * Pain Medicine: If you do not get relief from your pain, please call your doctor for help. Take the following with you to your follow-up doctor appointments: * Weight Chart * Medication List * List of questions Do not drink excessive alcohol, beer or wine. Current Hospital Diet Patient's current hospital diet: Full Liquid Diet, Diabetes Type 2 Diet Discharge Diet Recommended Diet: AHA Diet (Heart Healthy), Diabetes Type 2 Diet Fluid Restriction: 1800 ml (7 cups) Procedures Procedures Performed: Right Side Laparoscopic Assisted Colon Resection Pending Studies Studies pending at discharge: no Laboratory Results Hemoglobin A1c Test 02/19/18 14:49 Range/Units Estimated Average Glucose 209 mg/dl Hemoglobin A1c 8.9 H 4.5-5.6 % Lipid Panel Test 02/16/18 04:30 Range/Units Triglycerides Level 114 0-150 mg/dl Cholesterol Level 99 0-200 mg/dl HDL Cholesterol 35 mg/dl Cholesterol/HDL Ratio 2.8 LDL Cholesterol, Calculated 41 mg/dl Medical Emergencies . Who to Call and When: Medical Emergencies: If at any time you feel your situation is an emergency, please call 911 immediately. . Non-Emergent Contact Non-Emergency issues call your: Primary Care Provider, Surgeon Call Non-Emergent contact if: temperature is above 101.5, your pain is not controlled, wound has increased drainage, wound has increased redness . "Provider Documentation" section prepared by Palma Howard. .
[2018-03-08] MEDS ORDERED: LVMI SC (15:40)
[2018-03-08] MEDS ORDERED: APIX1TAB3 PO (15:40)
[2018-03-08] MEDS ORDERED: NVLG SQ (15:40)
[2018-03-08] MEDS ORDERED: MAGN400C2 PO (15:40)
[2018-03-08] MEDS ORDERED: POTA10TA PO (15:40)
[2018-03-08] MEDS ORDERED: LPR25 PO (15:40)
[2018-03-08] MEDS ORDERED: FURO-85 PO (15:40)
[2018-03-08] MEDS ORDERED: OXGN (15:49)
[2018-03-08 16:04] VITALS: BP 114/2; PULSE 77; TEMP 37.1; O2SAT 92
[2018-03-08] MEDS ORDERED: APIXABAN 5 MG TAB PO SCH (21:00)
--- NOTE | 2018-03-09 01:48 | Progress Note ---
Subjective Date of Service: Mar 08, 2018. Subjective Pt evaluation today including: conversation w/ patient, physical exam, chart review, lab review, conversation w/ immigration consultant (Dr. Abraham ), review of inpatient medication list Pain: none reported PO Intake: eating well Voiding: no voiding problems tele again without a. fib overnight feels good offers no complaints awake, alert, following all commands no issues per staff +flatus and bowel movements Review of Systems Respiratory: No cough, No sputum, No wheezing, No dyspnea at rest Cardiac: No chest pain, No orthopnea, No PND, No edema Abdomen: No pain, No nausea, No vomiting Objective Vital Signs Date Time Temp Pulse Resp B/P (MAP) Pulse Ox O2 Delivery O2 Flow Rate FiO2 03/08/18 16:04 37.1 77 18 92 Room Air 03/08/18 14:40 37.1 77 18 114/2 (39) 82 Room Air 03/08/18 14:40 92 Nasal Cannula 2.0 03/08/18 11:19 36.8 66 18 136/76 (96) 95 Nasal Cannula 2.0 03/08/18 08:06 141/81 (101) 03/08/18 08:00 Nasal Cannula 1.0 03/08/18 07:06 36.5 68 20 84/69 (74) 98 Nasal Cannula 2.0 03/08/18 03:30 37.4 72 18 107/67 (80) 91 Nasal Cannula 2.0 Physical Exam General Appearance: no apparent distress, + obese ENT: pharynx normal (MM dry) Neck: no JVD Respiratory/Chest: lungs clear, no respiratory distress, no accessory muscle use Cardiovascular: regular rate, rhythm, no gallop, no JVD, no murmur Abdomen: normal bowel sounds, non tender, soft, no organomegaly Extremities: + pertinent finding (right BKA, left AKA) Neurologic/Psychiatric: alert Skin: + pertinent finding (incision clean midline abdomen ) Laboratory Results Last 24 Hours Test 03/08/18 04:12 03/08/18 06:09 03/08/18 07:25 03/08/18 11:23 Bedside Glucose 141 mg/dl 133 mg/dl 138 mg/dl Sodium Level 140 mmol/L Potassium Level 4.4 mmol/L Chloride Level 107 mmol/L Carbon Dioxide Level 28 mmol/L Anion Gap 5.0 mmol/L Blood Urea Nitrogen 9 mg/dl Creatinine 1.09 mg/dl Est Creatinine Clear Calc Drug Dose 51.3 ml/min Estimated GFR () 63.9 Estimated GFR (Non- 55.1 BUN/Creatinine Ratio 8.2 Random Glucose 138 mg/dl Calcium Level 8.3 mg/dl Magnesium Level 1.9 mg/dl Test 03/08/18 16:17 Bedside Glucose 235 mg/dl Assessment and Plan 62 yo female with a h/o schizophrenia, JOSE R, depression, PAD with bilateral BKAs , HTN, DMII, CAD s/p 2 stents, GERD, insomnia, COPD, and morbid obesity with BMI 45 - 1. encephalopathy - resolved. Extensive w/u this admission including VBG, other labs, CT head, EKG, repeat u/a, urine cx, etc -- all neg/normal this admission. This was likely psychiatric in origin given her schizophrenia. She is doing well in this regard. Significant other reports she has episodes like this at SNF and these have been present for some time. No h/o seizures. No seizure activity seen here at [facility]. 2. Right hemicolectomy 2nd to large ascending colon polyp - POD #7 - management per gen surgery. Eating well; + stools. 3. acute kidney injury - resolved. Resumed LOLI. 4. acute diastolic CHF - appears to be close to euvolemia. Give 1 more dose of IV lasix, then at discharge give 3 days of po lasix 20mg, then stop. Echo 1 week ago as outpatient with EF 55% and normal valve function. 5. Schizophrenia/JOSE R/Depression - cont outpatient meds; see #1 above. 6. CAD with prior stents - continue asa, statin. No ischemic symptoms and EKG without ST changes. Troponin elevation was in the setting of rapid a. fib. Doubt ACS. Recommend cardiology follow-up after d/c in 1 week. 7. T2DM - recommend 30 units levemir at HS, and novolog 10 units TID w/ meals, plus novolog sliding scale for highs. 8. COPD - no exacerbation at this time; continue home inhalers. 9. GERD - PPI. 10. Glaucoma - continue home eye drops 11. morbid obesity with BMI 46 12. acute blood loss anemia - would recommend FE supplementation at d/c. 13. PAF - resolved, converted to NSR 3 days ago and has remained in NSR since. This likely occurred as a result of perioperative stress and acute CHF. CHADS is at least a 3. Leave on metoprolol 25mg BID. TSH noted to be normal. Patient willing to go on anticoagulation - start eliquis 5mg BID. Ok with Dr. Abraham to initiate anticoagulation at this point post-op. f/u with cardiology in 1 week after d/c. 14. hypoxia - I suspect she has underlying obesity-hypoventilation syndrome/ ELISA. Despite aggressive diuresis she remains with very minimal O2 requirement even at rest. She also has atelectasis on x-rays. Will send back to [facility] with 2 liters NC O2. They can attempt weaning over the next week or so. from medical standpoint can d/c back to SNF ([facility]) today d/c isabel Discharge planning: fdc facility
--- NOTE | 2018-03-15 10:56 | OPERATIVE REPORT ---
DATE OF OPERATION: 03/01/2018 PREOPERATIVE DIAGNOSIS: Polypoid lesion, ascending colon. POSTOPERATIVE DIAGNOSIS: Polypoid lesion, ascending colon. PROCEDURE: Laparoscopic-assisted right colon resection along with ascending colon, cecum, hepatic flexure, transverse colon with ileocolonic anastomosis. SURGEON: Dave Abraham MD SUPERVISOR CALIBRATION: STELLA Garcia was present throughout the whole case, and able to assist in this surgery. He prepped the patient, helped with the intraoperative exposure and also helped with the closure of the wounds. I attest to the content of the Intraoperative Record and any orders documented therein. Any exception s are noted below.
--- NOTE | 2018-03-15 21:22 | DISCHARGE SUMMARY ---
PRIMARY DISCHARGE DIAGNOSES: 1. Ascending colon polyp -- serrated adenoma. 2. Atrial fibrillation. 3. Acute kidney injury. 4. Acute diastolic congestive heart failure. 5. Encephalopathy. 6. Blood loss anemia. 7. Hypoxia. SECONDARY DISCHARGE DIAGNOSES: 1. Schizophrenia. 2. Type 2 diabetes. 3. Anxiety disorder. 4. Depression. 5. Coronary artery disease. 6. Peripheral arterial disease. 7. Hypertension. 8. Chronic obstructive pulmonary disease. 9. Obesity. PROCEDURES PERFORMED: Laparoscopic-assisted right colon resection with ileocolic anastomosis. CONSULTATIONS: [facility] hospitalist to assist in medical management. HOSPITAL COURSE: The patient is a 62-year-old female with a polypoid lesion in the ascending colon, not able to be resectable by colonoscopy, taken to the operating room for right hemicolectomy. The procedure was well tolerated. She was transferred to telemetry for monitoring given her multiple medical conditions. Hospitalist was consulted routinely. Subcutaneous heparin was used for DVT prophylaxis. She was continued on Lantus insulin along with a sliding scale. Postoperative day 1, NG tube was removed. Her creatinine bumped to 2.4. By day 2, this is normalized back to 1.2. She was tolerating clear liquids. On day 3, she had some periods of somnolence mixed with agitation. She was evaluated for that including a CT, which was negative. She was advanced to full liquids. [employer]USTRIAL/ORGANIZATIONAL PSYCHOLOGIST was discontinued. On the evening postoperative day 4, she went into AFib, was given metoprolol and was transferred to telemetry for further monitoring. By the next morning, she had converted back to sinus rhythm. She was diuresed for mild CHF. Day 6, she began moving her bowels. She was able to tolerate regular diet on day 7. She was stable for discharge at that time. Her H and H had equilibrated at 10 and 30. She did not require transfusion. She was started on Eliquis 5 mg b.i.d. for stroke prophylaxis. She continued to require supplemental oxygen 2 liters per minute to maintain sats greater than 90. Her incision was benign. She was stable for transfer back to [facility]. DISCHARGE INSTRUCTIONS: Return to [facility]. Follow up with Dr. Abraham in 1 week. Follow up with cardiology within 1 week. DISCHARGE MEDICATIONS: Eliquis 5 mg p.o. b.i.d., Lasix 20 mg daily x3 days, O2 2 liters per minute continuous, Lopressor 25 mg b.i.d., potassium chloride 10 mEq daily for 3 days. Continue previous medications. Tylenol 650 mg as needed, Fosamax 70 mg daily, aspirin 81 mg daily, Lipitor 80 mg daily, B complex vitamin daily, calcium 1 tablet b.i.d., vitamin D3 supplement, Klonopin 0.5 mg at bedtime, Colace 100 mg b.i.d., folic acid 1 mg daily, Zestril 5 mg daily, milk of magnesia 30 mg daily, daily multivitamin, Prilosec 20 mg daily, paroxetine 30 mg daily, Risperdal 37.5 mg IM q. 2 weeks, Senokot 1 tablet b.i.d., Fleet enema as needed, Flomax 0.4 mg daily, vitamin E supplement. Changes were made to her insulin. NovoLog will be changed from 38 units t.i.d. to 10 units t.i.d. and Levemir old dose of 15 units at bedtime to new dose 30 units at bedtime. Also, was given a prescription for magnesium oxide 400 mg daily and should continue Levemir 45 mg in the morning.
== END 2018-03-08 18:31 | disposition home or self-care (01) | DRG 329 ==
LOC: C.ACU 09:25 → C.2E 14:26 → UNDOADMIN 14:26 → ENRESERV 15:04 → C.MSW 03-03 20:02 → EDBEDREQ 03-05 15:52 → ENRESERV 03-05 15:55 → C.2T 03-05 16:52
PROVIDERS: ADMIT Surgery; ATTEND Surgery
PROC: 0DTK0ZZ Resection of Ascending Colon, Open Approach (ICD-10-PCS; principal; 2018-03-01 11:25)
PROC: 0DTH0ZZ Resection of Cecum, Open Approach (ICD-10-PCS; principal; 2018-03-01 11:25)
PROC: 0DBL0ZX Excision of Transverse Colon, Open Approach, Diagnostic (ICD-10-PCS; principal; 2018-03-01 11:25)
PROC: 0D1 Gastrointestinal System, Bypass (ICD-10-PCS; principal; 2018-03-01 11:25)
DX: K63.5 Polyp of colon (principal); I50.31 Acute diastolic (congestive) heart failure; G93.40 Encephalopathy, unspecified; I21.9 Acute myocardial infarction, unspecified; Z68.42 Body mass index [BMI] 45.0-49.9, adult; N17.9 Acute kidney failure, unspecified; E66.9 Obesity, unspecified; I48.91 Unspecified atrial fibrillation; D50.0 Iron deficiency anemia secondary to blood loss (chronic); R09.02 Hypoxemia; F20.9 Schizophrenia, unspecified; E11.9 Type 2 diabetes mellitus without complications; F41.9 Anxiety disorder, unspecified; F32.9 Major depressive disorder, single episode, unspecified; I25.10 Atherosclerotic heart disease of native coronary artery without angina pectoris; I73.9 Peripheral vascular disease, unspecified; I10 Essential (primary) hypertension; J44.9 Chronic obstructive pulmonary disease, unspecified; E11.40 Type 2 diabetes mellitus with diabetic neuropathy, unspecified; K21.9 Gastro-esophageal reflux disease without esophagitis; H40.9 Unspecified glaucoma; E87.5 Hyperkalemia; Z88.5 Allergy status to narcotic agent; Z88.8 Allergy status to other drugs, medicaments and biological substances